=== PATIENT | female | born 2005 | race Caucasian/White ===

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

== ENCOUNTER 2024-03-20 09:40 | Observation (INO) ==
[2024-03-20 10:36] LABS: Basophils # (auto) 0.05 K/uL (0.00-0.20); Basophils % (auto) 0.6 %; Eosinophils # (auto) 0.11 K/uL (0.00-0.50); Eosinophils % (auto) 1.3 %; Hematocrit (blood only) 34.5 % (37.0-47.0); Hemoglobin 10.9 g/dl (12.0-16.0); Immature Granulocytes # (auto) 0.04 K/uL (0.01-0.20); Immature Granulocytes % (auto) 0.5 %; Lymphocytes # (auto) 1.56 K/uL (1.20-3.40); Lymphocytes % (auto) 18.1 %; Mean Corpuscular Hemoglobin 24.4 pg (25.0-34.0); Mean Corpuscular Hgb Conc 31.6 g/dL (32.0-36.0); Mean Corpuscular Volume 77.2 fL (80.0-100.0); Mean Platelet Volume 9.9 fL (9.4-12.4); Monocytes # (auto) 0.62 K/uL (0.11-0.59); Monocytes % (auto) 7.2 %; Neutrophils # (auto) 6.25 K/uL (1.40-6.50); Neutrophils % (auto) 72.3 %; Platelet Count 271 K/uL (130-400); RDW Coefficient of Variation 15.9 % (11.5-14.5); RDW Standard Deviation 44.6 fL (36.4-46.3); Red Blood Count 4.47 M/uL (4.20-5.40); White Blood Count 8.63 K/ul (4.8-10.8)
[2024-03-20 10:50] LABS: Albumin Globulin Ratio 1.4 (0.9-2); Albumin Level 4.2 gm/dl (3.4-5.0); Bilirubin,Total 0.5 mg/dl (0.2-1.0); Calcium 9.3 mg/dl (8.6-10.3); Creatinine Clr Calc Pharmacy 131.7 ml/min; Est GFR (African American) 128.8 ml/min; Est GFR (Non-African American) 111.1 ml/min; Globulin 2.9 gm/dl (2.5-4.0); Potassium 3.4 mmol/L (3.5-5.1); Total Protein 7.1 gm/dl (6.0-8.3)
--- NOTE | 2024-03-20 11:17 | Emergency Department Note ---
History of Present Illness General Chief complaint: Overdose (Accidental) Stated complaint: OVERDOSE Time Seen by Provider: 03/20/24 11:04 History of Present Illness This is a 19-year-old patient presents to the emergency department via private vehicle with complaints of "overdose". Patient notes last evening around 11 PM she reached to take her Lamictal. They only takes 3 tablets of the lamictal but did not turn the lights on and accidentally took 3 tablets of Wellbutrin instead. They note this was 300 mg tablets therefore took 900 mg of Wellbutrin. They felt fine and went to sleep. Upon awakening today they note dizzy, lightheaded, has some shakiness and feeling as though the heart rate is different. They denies any fevers, chills, nausea or vomiting. No chest pain or shortness of breath. No abdominal pain. Patient denies that this was any attempt to harm herself. No SI or HI at the present time. Patient notes a history of suicide attempt at age 15 with overdose of medication. They states they have been overal doing well from a physical and mental standpoint. They notes her mood is much better. They did not take the Wellbutrin this morning that was scheduled noting, they took last night. Patient does request a nicotine patch at this time noting that they do smoke about 1 pack/day. Home Medications Medication Instructions Recorded Confirmed Type clonazepam 1 mg tablet 2 mg PO DAILY PRN Anxiety 10/30/23 03/20/24 History bupropion HCl 300 mg 24 hr tablet, 300 mg PO QAM 03/20/24 03/20/24 History extended release cholecalciferol (vitamin D3) 50 2,000 unit PO QAM 03/20/24 03/20/24 History mcg (2,000 unit) capsule (Vitamin D3) hydroxyzine HCl 50 mg tablet See Rx Instructions .Route .COMPLEX 03/20/24 03/20/24 History lamotrigine 100 mg tablet 300 mg PO QPM 03/20/24 03/20/24 History Allergies Allergy/AdvReac Type Severity Reaction Status Date / Time mirtazapine [From Remeron] Allergy Intermediate TONGUE Verified 03/20/24 11:47 SWELLED Past Med/Surg History Problem List (Updated 03/20/24 @ 20:07 by Cam Barahona PA-C) Marijuana use Tobacco use Accidental overdose (Acute) Laceration of left leg (Acute) Prolonged QT interval (Acute) Leukocytosis (Acute) Altered mental status (Acute) Tachycardia (Acute) Drug overdose, multiple drugs (Acute) Lab test negative for COVID-19 virus (Acute) Self-harm Borderline personality disorder Post traumatic stress disorder (PTSD) Generalized anxiety disorder with panic attacks Bipolar disorder Medical History Post traumatic stress disorder (PTSD) Depression with suicidal ideation Attention deficit disorder (ADD) Anxiety Depression Surgical History No pertinent past surgical history Social History Smoking Status: Current every day smoker Tobacco Type: Cigarettes Second Hand Exposure: No; Do You Dip or Chew Tobacco: No; Tobacco Cessation Education Requested by Patient: No Hx Alcohol Use: Yes Alcohol type: hard liquor Hx Substance Use: Yes Last Used Substance: Hours (ago) Preferred Language: Romansh Communication Ability: Effective Belt Picker Required: No Beliefs That Will Affect Care: None Current Living Situation: Significant Other Current Living Situation Comment: Lico Ervin Other Information That Helps Us Care for You: No Feels Safe at Home: Yes Safety Concerns: Feels Safe At This Time Gender Identity: Nonbinary Assistive Devices: None Review of Systems A total of 10 systems reviewed and were otherwise negative Physical Exam Vital Signs Vital Signs - 24 hr 03/20/24 09:40 03/20/24 09:53 03/20/24 11:02 Temperature 36.7 C Temperature Source Oral Pulse Rate 82 75 Pulse Rate [Right Finger] Respiratory Rate 18 Respiratory Effort / Characteristics Non-Labored Respiratory Depth Normal Respiratory Pattern Regular Blood Pressure 119/69 Blood Pressure [Right Arm] Blood Pressure Mean 85 Blood Pressure Mean [Right Arm] Pulse Oximetry 97 Oxygen Delivery Method Room Air Room Air Sepsis Recent Fever Within 48 Hours No Sepsis New/Unexplained Change in Mental Status N/A Sepsis Action Taken by Nursing No Action Required 03/20/24 11:33 Temperature Temperature Source Pulse Rate Pulse Rate [Right Finger] 82 Respiratory Rate 24 Respiratory Effort / Characteristics Non-Labored Spontaneous Respiratory Depth Normal Respiratory Pattern Blood Pressure Blood Pressure [Right Arm] 123/73 Blood Pressure Mean Blood Pressure Mean [Right Arm] 89 Pulse Oximetry 98 Oxygen Delivery Method Room Air Sepsis Recent Fever Within 48 Hours Sepsis New/Unexplained Change in Mental Status Sepsis Action Taken by Nursing VITAL SIGNS - Vital signs and nursing notes were reviewed.Stable and afebrile. GENERAL -19-year-old patient appearing their stated age who is in no acute distress. Communicates well with provider and answers questions appropriately. SKIN - Without rashes. HEAD - NC/AT. EYES - PERRL with EOMI bilaterally. Sclera anicteric. Palpebral conjunctiva pink and moist with no injection noted. EARS - No deformities of external structures noted on gross examination bilaterally.External auditory canals without discharge or otorrhea. Tympanic membranes pearly [place] without retraction or bulging. No fluid or purulent material visualized behind the TM. Handle of malleus, umbo, cone of light, pars tensa/flaccid all easily visualized. NOSE - Midline and without cyanosis. No epistaxis or purulent drainage noted. Septum midline without deviation or septal hematoma noted. MOUTH/OROPHARYNX - Without perioral cyanosis. Buccal mucosa pink and moist and without leukoplakia. Tongue midline with equal elevation of palate bilaterally. No tonsillar hypertrophy, erythema, or exudates noted. dentition noted. NECK - Neck with FROM. No nuchal rigidity. LUNGS -CTA CARDIAC - RRR EXTREMITIES - No clubbing or peripheral cyanosis.+5/5 strength noted in UE/LE bilaterally. NEUROLOGIC - Cranial nerves II through XII grossly intact. PSYCH - A&Ox3 and cooperates fully with examiner. Pt is very pleasant and interacts well with examiner. Course Administered Medications Discontinued Medications Nicotine (Nicotine 14 Mg/24 Hr Patch) 1 patch TD NOW STA Stop: 03/20/24 11:23 Last Admin: 03/20/24 11:41 Dose: Not Given Documented By: NRSultana Nicotine (Nicotine 21 Mg/24 Hr Tdsy) Confirm Administered Dose 1 patch TD .STK- MED ONE Stop: 03/20/24 11:31 Last Admin: 03/20/24 11:41 Dose: 1 patch Documented By: DOROTHEA Potassium Chloride (Potassium Chloride Crtab 20 Meq Tabcr) 20 meq PO NOW STA Stop: 03/20/24 17:20 Last Admin: 03/20/24 17:26 Dose: 20 meq Documented By: JAX Medical Decision Making Laboratory Data 03/20/24 09:55 03/20/24 09:55 Lab Results 03/20/24 03/20/24 03/20/24 Range/Units 09:55 10:57 11:01 WBC 8.63 (4.8-10.8) K/ul RBC 4.47 (4.20-5.40) M/uL Hgb 10.9 L (12.0-16.0) g/dl Hct 34.5 L (37.0-47.0) % MCV 77.2 L (80.0-100.0) fL MCH 24.4 L (25.0-34.0) pg MCHC 31.6 L (32.0-36.0) g/dL RDW Std Deviation 44.6 (36.4-46.3) fL RDW Coeff of Wood 15.9 H (11.5-14.5) % Plt Count 271 (130-400) K/uL MPV 9.9 (9.4-12.4) fL Immature Gran % (Auto) 0.5 % Neut % (Auto) 72.3 % Lymph % (Auto) 18.1 % [place] % (Auto) 7.2 % Eos % (Auto) 1.3 % Baso % (Auto) 0.6 % Neut # (Auto) 6.25 (1.40-6.50) K/uL Lymph # (Auto) 1.56 (1.20-3.40) K/uL [place] # (Auto) 0.62 H (0.11-0.59) K/uL Eos # (Auto) 0.11 (0.00-0.50) K/uL Baso # (Auto) 0.05 (0.00-0.20) K/uL Immature Gran # (Auto) 0.04 (0.01-0.20) K/uL PT (9.0-12.0) Seconds INR (0.9-1.1) APTT (21-31) Seconds PTT Ratio Sodium 138 (136-145) mmol/L Potassium 3.4 L (3.5-5.1) mmol/L Chloride 106 (98-107) mmol/L Carbon Dioxide 23 (21-32) mmol/L Anion Gap 9 (3-11) BUN 10 (6-23) mg/dl Creatinine 0.77 (0.6-1.2) mg/dl Est Cr Clr Drug Dosing 131.7 ml/min Est GFR ( Amer) 128.8 ml/min Est GFR (Non-Af Amer) 111.1 ml/min BUN/Creatinine Ratio 13.0 (10-20) Glucose 82 (70-99(Fasting)) mg/dl Calcium 9.3 (8.6-10.3) mg/dl Total Bilirubin 0.5 (0.2-1.0) mg/dl AST 13 (13-39) U/L ALT 10 (7-52) U/L Alkaline Phosphatase 77 (34-104) U/L Total Protein 7.1 (6.0-8.3) gm/dl Albumin 4.2 (3.4-5.0) gm/dl Globulin 2.9 (2.5-4.0) gm/dl Albumin/Globulin Ratio 1.4 (0.9-2) TSH 1.195 (0.300-4.500) uIu/ml Urine Color Yellow Urine Appearance Clear (Clear) Urine pH 5.5 (4.5-7.5) Ur Specific [place] 1.009 (1.000-1.030) Urine Protein Negative (Negative) Urine Glucose (UA) Negative (Negative) Urine Ketones 1+ H (Negative) Urine Blood Negative (Negative) Urine Nitrite Negative (Negative) Urine Bilirubin Negative (Negative) Urine Urobilinogen Negative (Negative) Ur Leukocyte Esterase Trace H (Negative) Urine WBC (Auto) 0-5 (0-5) /hpf Urine RBC (Auto) 0-2 (0-2) /hpf U Hyaline Cast (Auto) 0-2 (0-2) /lpf U Epithel Cells (Auto) 3-5 H (0-2) /hpf Urine Bacteria (Auto) None Seen (None Seen) POC Ur Test NEG (NEG) Salicylates < 3.0 L (3.0-30) mg/dl Acetaminophen < 3 L (10-30) ug/ml 03/20/24 Range/Units 11:13 WBC (4.8-10.8) K/ul RBC (4.20-5.40) M/uL Hgb (12.0-16.0) g/dl Hct (37.0-47.0) % MCV (80.0-100.0) fL MCH (25.0-34.0) pg MCHC (32.0-36.0) g/dL RDW Std Deviation (36.4-46.3) fL RDW Coeff of [place] (11.5-14.5) % Plt Count (130-400) K/uL MPV (9.4-12.4) fL Immature Gran % (Auto) % Neut % (Auto) % Lymph % (Auto) % [place] % (Auto) % Eos % (Auto) % Baso % (Auto) % Neut # (Auto) (1.40-6.50) K/uL Lymph # (Auto) (1.20-3.40) K/uL [place] # (Auto) (0.11-0.59) K/uL Eos # (Auto) (0.00-0.50) K/uL Baso # (Auto) (0.00-0.20) K/uL Immature Gran # (Auto) (0.01-0.20) K/uL PT 11.4 (9.0-12.0) Seconds INR 1.1 (0.9-1.1) APTT 25 (21-31) Seconds PTT Ratio 0.9 Sodium (136-145) mmol/L Potassium (3.5-5.1) mmol/L Chloride (98-107) mmol/L Carbon Dioxide (21-32) mmol/L Anion Gap (3-11) BUN (6-23) mg/dl Creatinine (0.6-1.2) mg/dl Est Cr Clr Drug Dosing ml/min Est GFR ( Amer) ml/min Est GFR (Non-Af Amer) ml/min BUN/Creatinine Ratio (10-20) Glucose (70-99(Fasting)) mg/dl Calcium (8.6-10.3) mg/dl Total Bilirubin (0.2-1.0) mg/dl AST (13-39) U/L ALT (7-52) U/L Alkaline Phosphatase (34-104) U/L Total Protein (6.0-8.3) gm/dl Albumin (3.4-5.0) gm/dl Globulin (2.5-4.0) gm/dl Albumin/Globulin Ratio (0.9-2) TSH (0.300-4.500) uIu/ml Urine Color Urine Appearance (Clear) Urine pH (4.5-7.5) Ur Specific [place] (1.000-1.030) Urine Protein (Negative) Urine Glucose (UA) (Negative) Urine Ketones (Negative) Urine Blood (Negative) Urine Nitrite (Negative) Urine Bilirubin (Negative) Urine Urobilinogen (Negative) Ur Leukocyte Esterase (Negative) Urine WBC (Auto) (0-5) /hpf Urine RBC (Auto) (0-2) /hpf U Hyaline Cast (Auto) (0-2) /lpf U Epithel Cells (Auto) (0-2) /hpf Urine Bacteria (Auto) (None Seen) POC Ur Test (NEG) Salicylates (3.0-30) mg/dl Acetaminophen (10-30) ug/ml MDM Narrative Patient was seen and evaluated as above in room A02. Review was performed of triage nursing notes and vital signs. I did review pertinent previous visits and patient history. After obtaining a thorough history and physical examination the above work up was performed. Patient presents to us today for evaluation of ingestion of Wellbutrin the patient notes is accidental. Patient denies that this was an attempt to harm themself. EKG reveals normal sinus rhythm at a rate of 77 bpm. QTc 466. QRS 92. No ST elevation. Options of care were discussed with the patient. IV access was established. Labs were drawn. No leukocytosis. Minor anemia noted with hemoglobin at 10.9. Mild hypokalemia 3.4. No evidence of kidney or liver failure. UA negative for infection. UPT is negative. Coags pending at this time as well as salicylate and acetaminophen level. 11:17 AM-I spoke to Poison Control Center. Recommendation is to observe the patient for 24 hours postingestion noting elevated risk of seizure secondary to the amount of Wellbutrin that was ingested. Seizure precautions initiated. Patient did inquire about an nicotine patch therefore was ordered. Will proceed with admission at this time. Case discussed with the hospitalist service. Please refer to further documentation regarding her stay GCS: 15 In the evaluation and treatment of this patient the following differential diagnoses were entertained: Accidental ingestion, intentional ingestion, mixed drug ingestion, among others Impression & Plan Accidental overdose Discharge Plan Visit Data Chief Complaint: Overdose (Accidental) Stated Complaint: OVERDOSE ED Provider: Yonny Gabriel ED Midlevel Provider: Cam Barahona Discharge Problem: Accidental overdose Patient Disposition: Admitted As Inpatient Condition: Good Discharge Instructions Interventions: ED Discharge Assessment Last Done: 03/20/24 12:27
[2024-03-20 11:24] LABS: Appearance Urine Clear (Clear); Bacteria Urine Automated None Seen (None Seen); Bilirubin Urine Negative (Negative); Blood Urine Negative (Negative); Cast Urine Automated 0-2 /lpf (0-2); Color Urine Yellow; Glucose Urine UA Negative (Negative); Ketones Urine 1+ (Negative); Leukocyte Esterase Urine Trace (Negative); Nitrite Urine Negative (Negative); Protein Urine Negative (Negative); RBC Urine Automated 0-2 /hpf (0-2); Specific Gravity Urine 1.009 (1.000-1.030); Urobilinogen Urine Negative (Negative); WBC Urine Automated 0-5 /hpf (0-5); pH Urine 5.5 (4.5-7.5)
[2024-03-20 11:37] LABS: Acetaminophen < 3 ug/ml (10-30); Salicylate < 3.0 mg/dl (3.0-30)
[2024-03-20] MEDS: NICOTINE 14 MG/24 HR PATCH TD STA (11:41)
[2024-03-20] MEDS: NICOTINE 21 MG/24 HR TDSY TD ONE (11:41)
--- NOTE | 2024-03-20 11:52 | History & Physical Report ---
<Statement entered by Volodymyr Esteves DO - 03/20/24 17:21> I have seen and examined the patient and have discussed the case with the provider above. I have reviewed the advanced practitioner's documentation, and I agree with, and take responsibility for that plan of care. 10 minutes additional care Patient seen while still in the ED with LILIAN. Plan of care and orders reviewed with LILIAN and as outlined below Date of Service March 20, 2024 Assessment & Plan (1) Accidental overdose: (2) Bipolar disorder: (3) Generalized anxiety disorder with panic attacks: (4) Post traumatic stress disorder (PTSD): (5) Tobacco use: (6) Marijuana use: (7) Borderline personality disorder: Plan: - Admit to med surg for observation - Poison control contacted and recommended 24 hrs observation due to increased risk for seizure with ingestion of Wellbutrin ER 900 mg total since it is over 600 mg threshold. - EKG reviewed without acute changes, noted prolonged QTC - Follows with outpt psych with [facility] -- pt has follow up with them tomorrow 03/21 at 1:30pm. Would advise discharge if at all possible for her in the morning to make this appointment. No need for inpt psych eval. - Hx of intentional overdose, at this time seems like this was truely accidental. 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 - Pt education on ER dosing and not being able to cut the pills in half was held at bedside - will need to reinforce medication instructions/dosing prior to dc - Discussion held regarding smoking cessation at bedside - encouraged slow taper off 3# cigs weekly, enforced wellbutrin should help with cravings, also habit of drawing to help her relax. Pt uses marijuana and has medical card. - Drug tox screen ordered for completeness DVT ppx: teds, scds, ambulatory Lines: 1 PIV FEN/GI: Regular diet CODE: Full code Dispo: From home, likely to remain in the hospital x 1-2 days A total of 75 minutes were spent with greater than 50% of that time face to face with the patient, personally reviewing all current laboratories, imaging studies, past medication reconciliation, outpatient chart review, and discussion with specialists to collaborate care for the patient with attending. Please see attending documentation for corrections and/or additions. History of Present Illness Chief Complaint: Accidental ingestion of Wellbutrin ER 900 mg total at 11pm last night Primary Care Provider: Yanna Borja, This is a 19-year-old biological female who goes by Castro (them/their/they), with PMHx of generalized anxiety with panic attack, bipolar disorder, borderline personality disorder, history of suicidal attempt at age 17 and chronic tobacco and marijuana use. Pt presents today with complaint of accidentally ingesting Wellbutrin 900 mg extended release last night around 11 PM. Pt states typically takes Lamictal 3 tablets in the evening (total 300 mg), and due to grabbing of the bottle in the dark, did not see what had actually been picked up. Patient complains of increased shakiness this morning as well as heart palpitations or feeling like it missed a beat. Castro presented to the ER and poison control was contacted. Poison control is recommending observation of the patient for 24 hours due to the increased seizure risk 24 hours after ingestion of more than 600 mg Wellbutrin. Pt admits to smoking 1 ppd cigarrettes as well as smokes marijuana daily. She last smoked marijuana a few days ago. Pt also notes that she had been cutting her Wellbutrin tablets in half because she ran out of the normal 150 mg ER tablets. We had a long discussion about not cutting them in half, and proper disposal of medication such as returning the medications to a pharmacy. Pt denies potential for . States she doesn't know when her last menses was but that it has been irregular all her life. Pt is sexually active with women, denies control use, discussion was held regarding barrier protection for STIs. Pt expressed understanding. Allergies Allergy/AdvReac Type Severity Reaction Status Date / Time mirtazapine [From Remeron] Allergy Intermediate TONGUE Verified 03/20/24 11:47 SWELLED Home Medications Medication Instructions Recorded Confirmed Type bupropion HCl 150 mg tablet,12 hr 150 mg PO DAILY 10/30/23 03/20/24 History sustained-release clonazepam 1 mg tablet 1 mg PO BID PRN Anxiety 10/30/23 03/20/24 History cholecalciferol (vitamin D3) 50 2,000 unit PO QAM 03/20/24 03/20/24 History mcg (2,000 unit) capsule (Vitamin D3) hydroxyzine HCl 50 mg tablet See Rx Instructions .Route .COMPLEX 03/20/24 03/20/24 History lamotrigine 100 mg tablet See Rx Instructions .Route .COMPLEX 03/20/24 03/20/24 History Past Med/Surg History Problem List (Updated 03/20/24 @ 11:44 by Meagan Amador PA-C) Marijuana use Tobacco use Accidental overdose Laceration of left leg (Acute) Prolonged QT interval (Acute) Leukocytosis (Acute) Altered mental status (Acute) Tachycardia (Acute) Drug overdose, multiple drugs (Acute) Lab test negative for COVID-19 virus (Acute) Self-harm Borderline personality disorder Post traumatic stress disorder (PTSD) Generalized anxiety disorder with panic attacks Bipolar disorder Medical History Post traumatic stress disorder (PTSD) Depression with suicidal ideation Attention deficit disorder (ADD) Anxiety Depression Surgical History No pertinent past surgical history Social History Smoking Status: Current every day smoker Tobacco Type: Cigarettes Second Hand Exposure: No; Do You Dip or Chew Tobacco: No; Hx Alcohol Use: Yes Alcohol type: hard liquor Hx Substance Use: Yes Last Used Substance: Hours (ago) Preferred Language: Mauritanian Communication Ability: Effective Hand Packager Required: No Beliefs That Will Affect Care: None Current Living Situation: Significant Other Current Living Situation Comment: Lico Ervin Feels Safe at Home: Yes Gender Identity: Nonbinary Assistive Devices: None Review of Systems Review of Systems: Constitutional: No fever, sweats or chills, + shakiness as per HPI Eyes: No diplopia, no worsening or blurred vision ENT: normal hearing, no trouble swallowing Respiratory: No cough, sputum, dyspnea at rest or on exertion Cardiovascular: No chest pain, tightness or heaviness, + occasional flutter/palpitation per HPI Abdomen: No pain, nausea, vomiting, diarrhea or constipation Musculoskeletal: No joint pain, calf pain, swelling Neurologic: No weakness, numbness/tingling, or balance problems Psychiatric: Hx of anxiety , mood disorder, no suicidal ideations or homicidal ideations Skin: No rash or itch Physical Exam Physical Exam: General: awake, alert, no apparent distress, white female Head: Normocephalic, atraumatic ENT: PERRL, EOMI, no pharyngeal exudate, mucous membranes moist Chest: Clear to auscultation, on room air, no adventitious breath sounds Cardiac: Regular rate and rhythm, no murmur, no JVD, normal peripheral pulses, good capillary refill Abdominal: NABS x 4 quadrants, soft, nondistended, nontender to palpation, no rebound or guarding Extremities: Normal inspection, no peripheral edema or erythema, calfs nontender to palpation Psych: Normal mood and affect, no suicidal ideations or homicidal ideations Neuro: AAO x 3, strength intact bilaterally and rated 5/5, no motor deficits, speech is clear, no peripheral sensory deficits Results & Data Results & Data Vital Signs (Past 12 Hours) Vital Signs Temp Pulse Pulse Resp BP BP Pulse Ox 03/20/24 11:33 82 24 123/73 98 03/20/24 11:02 03/20/24 09:53 75 03/20/24 09:40 36.7 C 82 18 119/69 97 O2 Del Method 03/20/24 11:33 Room Air 03/20/24 11:02 Room Air 03/20/24 09:53 03/20/24 09:40 Room Air Laboratory Results 03/20/24 03/20/24 03/20/24 11:01 10:57 09:55 WBC 8.63 RBC 4.47 Hgb 10.9 L Hct 34.5 L MCV 77.2 L MCH 24.4 L MCHC 31.6 L RDW Std Deviation 44.6 RDW Coeff of Wood 15.9 H Plt Count 271 MPV 9.9 Immature Gran % (Auto) 0.5 Neut % (Auto) 72.3 Lymph % (Auto) 18.1 [place] % (Auto) 7.2 Eos % (Auto) 1.3 Baso % (Auto) 0.6 Neut # (Auto) 6.25 Lymph # (Auto) 1.56 [place] # (Auto) 0.62 H Eos # (Auto) 0.11 Baso # (Auto) 0.05 Immature Gran # (Auto) 0.04 Sodium 138 Potassium 3.4 L Chloride 106 Carbon Dioxide 23 Anion Gap 9 BUN 10 Creatinine 0.77 Est Cr Clr Drug Dosing 131.7 Est GFR ( Amer) 128.8 Est GFR (Non-Af Amer) 111.1 BUN/Creatinine Ratio 13.0 Glucose 82 Calcium 9.3 Total Bilirubin 0.5 AST 13 ALT 10 Alkaline Phosphatase 77 Total Protein 7.1 Albumin 4.2 Globulin 2.9 Albumin/Globulin Ratio 1.4 Urine Color Yellow Urine Appearance Clear Urine pH 5.5 Ur Specific [place] 1.009 Urine Protein Negative Urine Glucose (UA) Negative Urine Ketones 1+ H Urine Blood Negative Urine Nitrite Negative Urine Bilirubin Negative Urine Urobilinogen Negative Ur Leukocyte Esterase Trace H Urine WBC (Auto) 0-5 Urine RBC (Auto) 0-2 U Hyaline Cast (Auto) 0-2 U Epithel Cells (Auto) 3-5 H Urine Bacteria (Auto) None Seen POC Ur Test NEG Salicylates < 3.0 L Acetaminophen < 3 L Code Status & VTE Plan Code Status Full code
[2024-03-20 12:07] LABS: INR 1.1 (0.9-1.1); Partial Thromboplastin Ratio 0.9; Partial Thromboplastin Time 25 Seconds (21-31); Prothrombin Time 11.4 Seconds (9.0-12.0)
[2024-03-20 12:29] LABS: Amphetamines+Metham, Urine Pos (Neg); Barbiturates, Urine Neg (Neg); Benzodiazepine, Urine Neg (Neg); Cocaine, Urine Neg (Neg); MDMA (Ecstacy), Urine Pos (Neg); Marijuana, Urine Pos (Neg); Methadone, Urine Neg (Neg); Opiate, Urine Neg (Neg); Phencyclidine, Urine Neg (Neg)
[2024-03-20 12:30] LABS: Thyroid Stimulating Hormone 1.195 uIu/ml (0.300-4.500)
[2024-03-20] MEDS ORDERED: ACETAMINOPHEN 325 MG TAB PO PRN (12:33)
--- NOTE | 2024-03-20 16:13 | Electrocardiogram Report ---
Test Reason : Blood Pressure : / mmHG Vent. Rate : 077 BPM Atrial Rate : 077 BPM P-R Int : 176 ms QRS Dur : 092 ms QT Int : 412 ms P-R-T Axes : 045 044 035 degrees QTc Int : 466 ms Normal sinus rhythm Early repolarization Otherwise Normal ECG When compared with ECG of 31-OCT-2023 06:03, No significant change was found Confirmed by Ananda Addison ([id number]) on 03/20/2024 4:12:51 PM Referred By: REFERRED SELF Confirmed By:Ananda Addison
[2024-03-20] MEDS: POTASSIUM CHLORIDE CRTAB 20 MEQ TABCR PO STA (17:26)
--- OUTSIDE RECORDS SUMMARY | 2024-03-20 20:39 | External Medical Summary | Summary of Care ---
Author Name Unknown Organization [facility] Address [address] [place] [address] Phone [phone] Care Team Providers Care Sound Equipment Mechanic Name Role Phone Yanna Borja DO Primary Care Provider [phone] Reason for Visit * Reason Comments Acute Patient is here toda y due to concerns about epilepsy. Patient states she had a seizure two days ago. Patient states she had the first one when she was 15 due to OD on pills, and second one when she smoked laced marijuana. Patient states when she is about to have a panic attack she freezes and stares off and is not responsive to others. Patient states the one two days ago she took her prescribed medication and still had a panic attack which led into a seizure that lasted 10 minutes. etc Encounter Details Date Type Department Care Team (Late st Contact Info) Description 02/06/2024 1:20 PM EDT [facility] [address] [place] [address] February, Colin Chappell MD [address] [place] [address] Seizure-like activity (HCC)*; Bipolar disorder, current episode depressed, severe, without psychotic features (HCC); Borderline personality disorder (HCC) Allergies Active Allergy Reactions Criticality Noted Date Comments Mirtazapine 06/11/2021 Swelling per psych records from [facility] 04/2021 documented as of this encounter (statuses as of 02/06/2024) Medications Medication Sig Dispensed Refills Start Date End Date Status buPROPion HCl ER (XL) 300 MG Oral Tablet Extended Release 24 Hour (Wellbutrin XL) Take 1 Tablet by mouth in the morning. 30 Tablet 5 11/10/2023 Active lamoTRIgine 25 MG Oral Tablet Chewable (lamoTRIgine) Take 25 mg by mouth in the morning and 25 mg in the evening. 30 Tablet 1 11/10/2023 Active clonazePAM 2 MG Oral Tablet (KlonoPIN) Take 1 Tablet by mouth daily as needed for Anxiety. 4 Tablet 0 11/10/2023 Active hydrOXYzine HCl 50 MG Oral Tablet TAKE 1-2 TABLETS BY MOUTH AT BEDTIME NEEDED 0 11/24/2023 Active Vitamin D3 50 MCG (2000 UT) Oral Capsule Take 1 Capsule by mouth in the morning. 90 Capsule 3 12/12/2023 Active metFORMIN HCl 500 MG Oral Tablet (Glucophage) Take 1 Tablet by mouth 2 times a day with morning and evening meals. 180 Tablet 0 01/08/2024 Active documented as of this encounter (statuses as of 02/06/2024) Active Problems Problem Noted Date Diagnosed Date Prediabetes 12/12/2023 Hyperinsulinemia 12/12/2023 Bipolar 2 disorder, major depressive episode 08/2024 Borderline personality disorder 11/10/2023 Eating disorder 01/30/2022 Bipolar disorder 01/30/2022 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 Foreign body alimentary tract 01/30/2022 Palpitations 12/02/2015 Chronic rhinitis 12/16/2010 documented as of this encounter (statuses as of 02/06/2024) Resolved Problems Problem Noted Date Diagnosed Date Resolved Date Fracture of phalanx of left index finger 05/29/2014 06/11/2021 Overview: distal Finger injury 05/29/2014 06/11/2021 Overview: left 2nd Open wound of finger 05/29/2014 024 Subungual hematoma of finger of left hand 05/29/2014 06/11/2021 Overview: 2nd Dysfunction of eustachian tube 12/16/2010 06/11/2021 OTITIS MEDIA,RECURRENT 12/16/201006/11 RECURRENT ACUTE SINUSITIS 12/16/2010 RECURRENT ACUTE PHARYNGITIS 12/16/2010 06/11/2021 documented as of this encounter (statuses as of 02/06/2024) Immunizations Name Administration Dates Next Due DTaP [...] Date Recorded PHQ Adult Total Score 20 11/29/2023 Hunger Vital Sign Answer Date Recorded Within the past 12 months, y ou worried that your food would run out before you got the money to buy more. Patient declined Within the past 12 months, t he food you bought just didn't last and you didn't have money to get more. Patient declined Sex and Gender Information Value Date Recorded Sex Assigned at Female 05/12/2023 1:03 PM EDT Gender Identity Non Binary 05/12/2023 1:03 PM EDT Sexual Orientation Bisexual 01/21/2024 10 :56 AM EDT Job Start Date Occupation Industry Not on file Not on file Not on file documented as of this encounter Last Filed Vital Signs Vital Sign Reading Time Taken Comments Blood Pressure 116/84 02/06/2024 1:12 PM EDT Pulse 108 02/06/2024 1:12 PM EDT Temperature 36.9 C (98.4 F) 02/06/2024 1:12 PM ED T Respiratory Rate 16 02/06/2024 1:12 PM EDT Oxygen Saturation 99% 02/06/2024 1:12 PM EDT Inhaled Oxygen Concentration - - Weight 89 kg (196 lb 4.8 oz) 02/06/2024 1:12 PM EDT Height - - Body Mass Index - - documented in this encounter Progress Notes * Colin Lopez MD - 02/06/2024 1:15 PM EDT Images from the original note were not included. Assessment and Plan Patient presents due to seizure-like activity. I suspect that this is related to panic rather than a seizure as the patient can recall the events of 2 days ago, has no clear postictal period, and hadno urinary incontinence or tongue biting. We did discuss getting an EEG to rule out any concern forepilepsy. She will continue her medications unchanged. We did discuss importance of not stocking doses of Klonopin as she did around the events 2 days ago due to risk of respiratory depression and overdose. She does not drive. If concerns for epilepsy on EEG recommend Neurology evaluation. Otherwise continue to follow up with Psychiatry for ongoing care. 1. Seizure-like activity (HCC) - EEG ROUTINE 2. Bipolar disorder, current episode depressed, severe, without psychotic features (HCC) 3. Borderline personality disorder (HCC) Wrap-Up Follow up as needed. History of Present Illness The patient is a 19 year old person who presents for follow up. Patient presents due to concerns of seizure. Delmer has a history of seizure at age 15 when overdosed on pills. Had a second seizure when using marijuana. Has staring into the distance when highly stressed that delmer considers a seizure. Two days ago had a panic attack that led to a "seizure". Was feeling very overwhelmed and stressed due to traumatic memories coming up. This let to panic attack. Remembers falling off of the bed and thrashing around. Banged right side of face on the floor. Remembers fiance speaking. Following the episode was off balance and had a fall. No urinary incontinence. No tongue biting. Lasted 10 minutes.Took klonopin 2 mg of klonopin before the panic attack then took 4 mg of klonopin following the episode. Patient does not drive. Follows with [facility] for psychiatric care. Physical Exam Vitals: 02/06/24 1312 Temp: 36.9 C (98.4 F) Pulse: 108 Resp: 16 SpO2: 99% BP: 116/84 Physical Exam Physical Exam Vitals reviewed. Constitutional: General: Delmer Santos is not in acute distress. Pulmonary: Effort: Pulmonary effort is normal. No respiratory distress. Neurological: General: No focal deficit present. Mental Status: Delmer Santos is alert. Cranial Nerves: No cranial nerve deficit. Motor: No weakness. Gait: Gait normal. Psychiatric: Mood and Affect: Mood normal. Behavior: Behavior normal. This note has been completed in part utilizing [employer] Speech Voice Recognition Software. Due to technical limitations of the software, grammatical errors, random word insertions, prounoun errors, and incomplete sentences may occur. Any formal questions or concerns about the content, text, or information contained within the body of this dictation should be directly addressed to the provider for clarification. documented in this encounter Nursing Notes * Ev Coronado LPN - 02/06/2024 1:11 PM EDT The patient has been properly identified by confirmation of name and date of . Chief Complaint Patient presents with Acute Patient is here today due to concerns about epilepsy. Patient states she had a seizure two days ago. Patient states she had the first one when she was 15 due to OD on pills, and second one when she smoked laced marijuana. Patient states when she is about to have a panic attack she freezes and stares off and is not responsive to others. Patient states the one two days ago she took her prescribed medication and still had a panic attackwhich led into a seizure that lasted 10 minutes. etc Patient states after taking the one clonidine she took 2 more and then got herself calmed down. Patient states she was advised to never take that amount again by her psychiatrist. documented in this encounter Plan of Treatment Upcoming Encounters Date Type Department Care Team (Late st Contact Info) Description 02/21/2024 10:30 AM EDT NeuroDiagnostic Study Neurophysiology [facility] [address] [facility] [place] [address] Sp, Neurophys Tech [address] [facility] [address] 11/30/2024 8:00 AM EST [facility] [address] [facility] [place] [phone] Nelly Graf PA-C [address] [place], [place] [phone] Scheduled Orders Name Type Priority Associated Diagnoses Orde r Schedule EEG ROUTINE Procedures Routine Seizure-like activity (HCC) Ordered: 02/06/2024 Health Maintenance Due Date Last Done Comments Pneumococcal Vaccine: Pediatrics (0 to 5 Years) and At-Risk Patients (6 to 64 Years) (1 of 1 - PPSV23 or PCV20) 01/30/2010 05/06/2005, 2004, 2004, Additional history exists GARDASIL-HPV IMMUNIZATION SERIES (2 - 2-dose series) 04/22/2016 10/22/2015 Gonorrhea / Chlamydia Screen 01/30/2019 HIV Screening 01/30/2019 Hepatitis C Screening 01/30/2022 COVID-19 Vaccine ( - season) 2023 Depression, Most Recent Score >= 10 (will fire each visit until score < 10) 02/07/2024 02/06/2024 DTaP,Tdap,and Td Vaccines (7 - Td or Tdap) 05/29/2024 05/29/2014, 04/15/2009, 05/06/2005, Additional history exists Influenza Vaccine (FLU shot) (Season Ended) 2024 09/25/2022, 10/19/2021, 10/19/2021, Additional history exists HbA1c 11/29/2024 11/29/2023, 07/28/2021 Yearly Wellness Visit 11/29/2024 11/29/2023 , 11/26/2022, 10/22/2015 Hepatitis B Completed 2004, 12/2003, 2004, Additional history exists MENINGOCOCCAL (MENACTRA/MENVEO) Aged Out 10/22/2015 No longer eligible based on patient's age to complete this topic documented as of this encounter Medical Devices Not on filedocumented as of this encounter Visit Diagnoses Diagnosis Seizure-like activity (HCC)- Primary Other convulsions Bipolar disorder, current episode depressed, severe, without psychotic features (HCC) Bipolar I disorder, most recent episode (or current) depressed, severe, without mention of psychotic behavior Borderline personality disorder (HCC) Borderline personality disorder documented in this encounter Advance Directives Latest Code Status on File Code Status Date Activated Date Inactivated Comments Full Code 01/30/2022 8:12 AM 02/02/2022 11:53 AM This o rder reflects the patients wishes and were consensually agreed upon. Care Teams Sound Equipment Mechanic Relationship Specialty Start Date End Date Yanna Borja DO [address] [place] [address] PCP - General Family Medicine 10/18/22 documented as of this encounter
--- OUTSIDE RECORDS SUMMARY | 2024-03-20 20:39 | External Medical Summary | Summary of Care ---
Author Name Unknown Organization [facility] Address [address] [place] [address] Phone [phone] Care Team Providers Care Agency Director Name Role Phone Yanna Borja DO Primary Care Provider Reason for Visit * Reason Onset Date Comments Advice 12/06/2023 Encounter Details Date Type Department Care Team (Late st Contact Info) Description 12/06/2023 Telephone Located Within [facility] [address] [place] [address] Yanna Borja DO [address] [place] [address] Advice Allergies Active Allergy Reactions Criticality Noted Date Comments Mirtazapine 06/11/2021 Swelling per psych records from the [facility] 04/2021 documented as of this encounter (statuses as of 03/06/2024) Medications Medication Sig Dispensed Refills Start Date [...] MOUTH AT BEDTIME NEEDED 0 11/24/2023 Active documented as of this encounter (statuses as of 03/06/2024) Active Problems Problem Noted Date Diagnosed Date Prediabetes 12/12/2023 Hyperinsulinemia 12/12/2023 Bipolar 2 disorder, major depressive episode 08/2024 Borderline personality disorder 11/10/2023 Eating disorder 01/30/2022 Bipolar disorder 01/30/2022 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 Foreign body alimentary tract 01/30/2022 Palpitations 12/02/2015 Chronic rhinitis 12/16/2010 documented as of this encounter (statuses as of 03/06/2024) Resolved Problems Problem Noted Date Diagnosed Date [...] as of this encounter (statuses as of 03/06/2024) Immunizations Name Administration Dates Next Due DTaP [...] Answer Date Recorded PHQ Adult Total Score 15 02/06/2024 Hunger Vital Sign Answer Date Recorded Within [...] encounter Miscellaneous Notes * Telephone Encounter - Clemencia Chopra OSA - 12/06/2023 1:41 PM EST Reason for patient's call: Appointment Caller was transferred to [place] at the clinic. documented in this encounter Plan of Treatment Upcoming Encounters Date Type Department Care Team (Late st Contact Info) Description 11/30/2024 8:00 AM EST Office Visit Located Within [facility] [address] [place] [address] Nelly Graf PA-C [address] [place] [address] Health Maintenance Due Date Last Done Comments Pneumococcal Vaccine: Pediatrics (0 to 5 Years) and At-Risk Patients (6 to 64 Years) (1 of 1 - PPSV23 or PCV20) 01/30/2010 05/06/2005, 2004, 2004, Additional history exists GARDASIL-HPV IMMUNIZATION SERIES (2 - 2-dose series) 04/22/2016 10/22/2015 Gonorrhea / Chlamydia Screen 01/30/2019 HIV Screening 01/30/2019 Hepatitis C Screening 01/30/2022 COVID-19 Vaccine ( - 2022- season) 2023 Depression, Most Recent Score >= [...] and were consensually agreed upon. Care Teams Agency Director Relationship Specialty Start Date End Date Yanna Borja DO [address] [facility] [place] [address] PCP - General Family Medicine 10/18/22 documented as of this encounter
--- OUTSIDE RECORDS SUMMARY | 2024-03-20 20:39 | External Medical Summary | Summary of Care ---
Author Name Unknown Organization [facility] Address [address] [place] [address] Phone [phone] Care Team Providers Care Ampoule Sealer Name Role Phone Yanna Borja DO Primary Care Provider [phone] Reason for Visit * Reason Comments Acute [...] Description 02/06/2024 1:20 PM EDT Office Visit [facility] [address] [place] [address] February, Colin Chappell MD [address] [place] [address] Seizure-like activity (HCC)*; Bipolar disorder, current episode depressed, severe, without psychotic features (HCC); Borderline personality disorder (HCC) Allergies Active Allergy Reactions Criticality Noted Date Comments Mirtazapine 06/11/2021 Swelling per psych records from the [facility] 04/2021 documented as of this [...] episode. Patient does not drive. Follows with [facility] for psychiatric care. Physical Exam Vitals: 02/06/24 [...] note has been completed in part utilizing [employer] Speech Voice Recognition Software. Due to technical [...] 02/21/2024 10:30 AM EDT NeuroDiagnostic Study Neurophysiology [facility] [address] [facility] [place] [address] Sp, Neurophys Tech [address] [facility] [address] 11/30/2024 8:00 AM EST Office Visit [facility] [address] [place] [facility] [place] [address] Nelly Graf PA-C [address] [place], [place] [phone] Scheduled Orders Name Type Priority Associated Diagnoses [...] and were consensually agreed upon. Care Teams Ampoule Sealer Relationship Specialty Start Date End Date Yanna Borja DO [address] [place] [address] PCP - General Family Medicine 10/18/22 documented as of this encounter
--- OUTSIDE RECORDS SUMMARY | 2024-03-20 20:39 | External Medical Summary | Summary of Care ---
Author Name Unknown Organization [facility] Address [address] [place] [address] Phone [phone] Care Team Providers Care Conference Assistant Name Role Phone Yanna Borja DO Primary Care Provider Encounter Details Date Type Department Care Team (Late st Contact Info) Description 01/27/2024 Patient Reported Data Patient Survey Ortho OBERD Allergies Active Allergy Reactions Criticality Noted Date Comments Mirtazapine 06/11/2021 Swelling per psych records from the [facility] 04/2021 documented as of this encounter (statuses as of 01/27/2024) Medications Medication Sig Dispensed Refills Start Date [...] 0 11/24/2023 Active Vitamin D3 50 MCG (1999 UT) Oral Capsule Take 1 Capsule by mouth in the morning. 90 Capsule 3 12/12/2023 Active metFORMIN HCl 500 MG Oral Tablet (Glucophage) Take 1 Tablet by mouth 2 times a day with morning and evening meals. 180 Tablet 0 01/08/2024 Active documented as of this encounter (statuses as of 01/27/2024) Active Problems Problem Noted Date Diagnosed Date Prediabetes 12/12/2023 Hyperinsulinemia 12/12/2023 Bipolar 2 disorder, major depressive episode 08/2024 Borderline personality disorder 11/10/2023 Eating disorder 01/30/2022 Bipolar disorder 01/30/2022 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 Foreign body alimentary tract 01/30/2022 Palpitations 12/02/2015 Chronic rhinitis 12/16/2010 documented as of this encounter (statuses as of 01/27/2024) Resolved Problems Problem Noted Date Diagnosed Date [...] as of this encounter (statuses as of 01/27/2024) Immunizations Name Administration Dates Next Due DTaP [...] Care Team (Late st Contact Info) Description 02/01/2024 1:30 PM EDT Office Visit Orthopaedics [facility] [address] [place] [address] Trey Ji PA-C [address] [place] [address] 11/30/2024 8:00 AM EST Office Visit [facility] [address] [place] [phone] Nelly Graf PA-C [address] [facility] [place] [address] Health Maintenance Due Date Last Done Comments Pneumococcal Vaccine: Pediatrics (0 to 5 Years) and At-Risk Patients (6 to 64 Years) (1 of 1 - PPSV23 or PCV20) 01/30/2010 05/06/2005, 2004, 2004, Additional history exists GARDASIL-HPV IMMUNIZATION SERIES (2 - 2-dose series) 04/22/2016 10/22/2015 Gonorrhea / Chlamydia Screen 01/30/2019 HIV Screening 01/30/2019 Hepatitis C Screening 01/30/2022 COVID-19 Vaccine (2022- season) 2023 Influenza Vaccine (FLU shot) (#1) 2023 09/25/2022, 10/19/2021, 10/19/2021, Additional history exists Depression, Most Recent Score >= 10 (will fire each visit until score < 10) 11/30/2023 11/29/2023 DTaP,Tdap,and Td Vaccines (7 - Td or Tdap) 05/29/2024 05/29/2014, 04/15/2009, 05/06/2005, Additional history exists HbA1c 11/29/2024 11/29/2023, 07/28/2021 [...] and were consensually agreed upon. Care Teams Conference Assistant Relationship Specialty Start Date End Date Yanna Borja DO [address] [place] [address] PCP - General Family Medicine 10/18/22 documented as of this encounter
--- OUTSIDE RECORDS SUMMARY | 2024-03-20 20:39 | External Medical Summary | Summary of Care ---
Author Name Unknown Organization [facility] Address [address] [place] [address] Phone [phone] Care Team Providers Care Front Attendant Name Role Phone Yanna Borja DO Primary Care Provider Encounter Details Date Type Department Care Team (Late st Contact Info) Description 01/27/2024 Patient Reported Data Patient Survey Ortho OBERD Allergies Active Allergy Reactions Criticality Noted Date Comments Mirtazapine 06/11/2021 Swelling per psych records from the [facility] 04/2021 documented as of this encounter [...] 02/01/2024 1:30 PM EDT Office Visit Orthopaedics [facility] [address] [place] [address] Trey Ji PA-C [address] [place] [address] 11/30/2024 8:00 AM EST Office Visit [facility] [address] [place] [phone] Nelly Graf PA-C [address] [facility] [place] [address] Health Maintenance Due Date Last Done Comments [...] and were consensually agreed upon. Care Teams Front Attendant Relationship Specialty Start Date End Date Yanna Borja DO [address] [place] [address] PCP - General Family Medicine 10/18/22 documented as of this encounter
--- OUTSIDE RECORDS SUMMARY | 2024-03-20 20:40 | External Medical Summary | Summary of Care ---
Author Name Unknown Organization [facility] Address [address] [place] [address] Phone [phone] Care Team Providers Care Central Stores Attendant Name Role Phone Yanna Borja DO Primary Care Provider [phone] Encounter Details Date Type Department Care Team [...] 02/01/2024 1:30 PM EDT Office Visit Orthopaedics [facility] [address] [place] [address] Trey Ji PA-C [address] [place] [address] 11/30/2024 8:00 AM EST Office Visit [facility] [address] [place] [phone] Nelly Graf PA-C [address] [facility] [place] [address] Health Maintenance Due Date Last Done Comments [...] and were consensually agreed upon. Care Teams Central Stores Attendant Relationship Specialty Start Date End Date Yanna Borja DO [address] [place] [address] PCP - General Family Medicine 10/18/22 documented as of this encounter
--- OUTSIDE RECORDS SUMMARY | 2024-03-20 20:40 | External Medical Summary | Summary of Care ---
Author Name Unknown Organization [facility] Address [address] [place] [address] Phone [phone] Care Team Providers Care Project Coach Name Role Phone Yanna Borja DO Primary Care Provider [phone] Reason for Referral * Evaluate & Treat - Unlimited Visits (Within 30 days (routine)) - Pending Review Specialty Diagnoses / Procedures Referred By Sinan salas Referred To Contact Orthopaedic Surgery / Orthopedics Diagnoses Right wrist pain Nelly Graf PA-C [address] [place] [address] Referral ID Status Reason Start Date Expiration Date Visits Requested Visits Authorized [id number] Pending Review Specialty Services Required 01/23/[phone] Question Answer Referral Priority Within 30 days (routine) [facility] this appointment be scheduled? [facility] What body part is the patient being seen for? Forearm/Wrist What condition is the patient being seen for? Weakness/Numbness/Tingling Encounter Details Date Type Department Care Team ([facility] st Contact Info) Description 01/23/2024 10:40 AM EDT Telemedicine [place] [address] [place] [phone] Nelly Graf PA-C [address] [place] [address] Right wrist pain* Allergies Active Allergy Reactions Criticality Noted Date Comments Mirtazapine 06/11/2021 Swelling per psych records from the [facility] 04/2021 documented as of this encounter (statuses as of 01/23/2024) Medications Medication Sig Dispensed Refills Start Date [...] as of this encounter (statuses as of 01/23/2024) Active Problems Problem Noted Date Diagnosed Date Prediabetes 12/12/2023 Hyperinsulinemia 12/12/2023 Bipolar 2 disorder, major depressive episode 08/2024 Borderline personality disorder 11/10/2023 Eating disorder 01/30/2022 Bipolar disorder 01/30/2022 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 Foreign body alimentary tract 01/30/2022 Palpitations 12/02/2015 Chronic rhinitis 12/16/2010 documented as of this encounter (statuses as of 01/23/2024) Resolved Problems Problem Noted Date Diagnosed Date [...] as of this encounter (statuses as of 01/23/2024) Immunizations Name Administration Dates Next Due DTaP [...] as of this encounter Progress Notes * Nelly Graf PA-C - 01/23/2024 10:42 AM EDT Images from the original note were not included. History of Present Illness Meeta Santos is a 18 year old adult that presents for No chief complaint on file. Due to COVID 19 pandemic, this visit was done via video. Patient is established with the practice. Last face to face visit was 11/29/2023. Call start time: 1042 Patient location: HOME. I was in a hospital or clinic location. After connecting through televideo,patient was verified with two unique identifiers. 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 Methods to assure confidentiality were taken. Patient acknowledged consent and understanding of pr ivacy and security of the Telemedicine visit. The patient agreed to participate. 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 BP Readings from Last 3 Encounters: 11/29/23 114/66 11/10/23 124/72 08/11/23 124/64 Wt Readings from Last 3 Encounters: 11/29/23 90.4 kg (199 lb 6.4 oz) (97%, Z= 1.93)* 11/10/23 91.2 kg (201 lb) (97%, Z= 1.96)* 08/11/23 94.9 kg (209 lb 4.8 oz) (98%, Z= 2.08)* * Growth percentiles are based on CDC (Girls, 2-20 Years) data. BMI Readings from Last 3 Encounters: 11/29/23 32.18 kg/m (95%, Z= 1.67)* 08/11/23 33.78 kg/m (96%, Z= 1.78)* 11/26/22 32.57 kg/m (96%, Z= 1.74)* * Growth percentiles are based on CDC (Girls, 2-20 Years) data. Ht Readings from Last 3 Encounters: 11/29/23 1.676 m (5' 6") (75%, Z= 0.67)* 08/11/23 1.676 m (5' 6") (75%, Z= 0.67)* 11/26/22 1.676 m (5' 6") (75%, Z= 0.68)* * Growth percentiles are based on CDC (Girls, 2-20 Years) data. Pt tries tinel's at home She has tingling with this in to her hand Assessment and Plan Right wrist pain (Primary) - ORTHOPAEDICS REFERRAL OP Follow-up: Return if symptoms worsen or fail to improve. | Check-out note: Ortho for wrist pain - poss cts Pt vs night splint vs ortho Suggest ortho - get them to eval for cts vs wrist tendonitis / sprain and go from there. Pt agrees with plan Wrap-Up Time: I spent a total of 10-19 minutes (exact time 10 mins) on the date of service in preparation, delivery, and documentation of the care provided to Meeta Santos excluding any time spent in the performance of separately billed services. Nelly Graf PA-C 01/23/2024 10:46 AM documented in this encounter Plan of Treatment Upcoming Encounters Date Type Department Care Team (Late st Contact Info) Description 11/30/2024 8:00 AM EST Office Visit [facility] [address] [place] [phone] Nelly Graf PA-C [address] [place] [address] Scheduled Referrals Name Type Priority Associated Diagnoses Order Schedule ORTHOPAEDICS REFERRAL OP Referral Within 30 days (routine) Right wrist pain Ordered: 01/23/2024 Health Maintenance Due Date Last Done Comments Pneumococcal Vaccine: Pediatrics (0 to 5 Years) and At-Risk Patients (6 to 64 Years) (1 of 1 - PPSV23 or PCV20) 01/30/2010 05/06/2005, 2004, 2004, Additional history exists GARDASIL-HPV IMMUNIZATION SERIES (2 - 2-dose series) 04/22/2016 10/22/2015 Gonorrhea / Chlamydia Screen 01/30/2019 HIV Screening 01/30/2019 Hepatitis C Screening 01/30/2022 COVID-19 Vaccine ( - 2022- season) 2023 Influenza Vaccine (FLU shot) (#1) [...] as of this encounter Visit Diagnoses Diagnosis Right wrist pain- Primary Pain in joint, forearm documented in this encounter Advance Directives Latest Code Status on File Code Status Date Activated Date Inactivated Comments Full Code 01/30/2022 8:12 AM 02/02/2022 11:53 AM This o rder reflects the patients wishes and were consensually agreed upon. Care Teams Project Coach Relationship Specialty Start Date End Date Yanna Borja DO [address] [place] [address] PCP - General Family Medicine 10/18/22 documented as of this encounter
--- OUTSIDE RECORDS SUMMARY | 2024-03-20 20:40 | External Medical Summary | Summary of Care ---
Author Name Unknown Organization [facility] Address [address] [place] [address] Phone [phone] Care Team Providers Care Senior Partner Name Role Phone Yanna Borja DO Primary Care Provider [phone] Encounter Details Date Type Department Care Team (Late st Contact Info) Description 01/27/2024 Patient Reported Data Patient Survey Ortho OBERD Allergies Active Allergy Reactions Criticality Noted Date Comments Mirtazapine 06/11/2021 Swelling per psych records from the [facility] 04/2021 documented as of this [...] 02/01/2024 1:30 PM EDT Office Visit Orthopaedics [facility] [address] [place] [address] Trey Ji PA-C [address] [place] [address] 11/30/2024 8:00 AM EST Office Visit [facility] [address] [place] [phone] Nelly Graf PA-C [address] [facility] [place] [address] Health Maintenance Due Date Last Done Comments [...] were consensually agreed upon. Care Teams Senior Partner Relationship Specialty Start Date End Date Yanna Borja DO [address] [place] [address] PCP - General Family Medicine 10/18/22 documented as of this encounter
--- OUTSIDE RECORDS SUMMARY | 2024-03-20 20:40 | External Medical Summary | Summary of Care ---
Author Name Unknown Organization [facility] Address [address] [place] [place] [address] Phone [phone] Care Team Providers Care All Source Collection Manager Name Role Phone DariuszYanna calvo Chevy NGUYỄN Primary Care Provider Reason for Visit * Reason Onset Date Comments Medical Nutrition Therapy 01/10/2024 Encounter Details Date Type Department Care Team (Late st Contact Info) Description 01/10/2024 9:00 AM EDT Scheduled Telephone Bruno Alvarez [address] [place] [address] Jihan Jordan RDN [address] [place] [phone] Allergies Active Allergy Reactions Criticality Noted Date Comments Mirtazapine 06/11/2021 Swelling per psych records from the [facility] 04/2021 documented as of this encounter (statuses as of 01/10/2024) Medications Medication Sig Dispensed Refills Start Date [...] as of this encounter (statuses as of 01/10/2024) Active Problems Problem Noted Date Diagnosed Date Prediabetes 12/12/2023 Hyperinsulinemia 12/12/2023 Bipolar 2 disorder, major depressive episode 08/2024 Borderline personality disorder 11/10/2023 Eating disorder 01/30/2022 Bipolar disorder 01/30/2022 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 Foreign body alimentary tract 01/30/2022 Palpitations 12/02/2015 Chronic rhinitis 12/16/2010 documented as of this encounter (statuses as of 01/10/2024) Resolved Problems Problem Noted Date Diagnosed Date [...] as of this encounter (statuses as of 01/10/2024) Immunizations Name Administration Dates Next Due DTaP HIB - Dipth/Tet/Acell Pert/HIB /03/2009,05/06/2005,2004,12/2003,2004 HIB PRP-T, 4 dose (ActHib) 02/01/2005,,2004,12/2003 HPV [...] Recorded PHQ Adult Total Score 20 11/29/2023 Sex and Gender Information Value Date Recorded Sex Assigned at Female 05/12/2023 1:03 PM EDT Gender Identity Other 05/12/2023 1:03 PM EDT Sexual Orientation Lesbian 05/12/2023 1: 03 PM EDT Job Start Date Occupation Industry Not on file Not on file Not on file documented as of this encounter Miscellaneous Notes * Telephone Encounter - Jihan Jordan RDN - 01/10/2024 5:00 PM EDT Attempted to contact pt via cell phone regarding rescheduling missed follow-up nutrition appointment from December 14. Left message on pt's voicemail regarding rescheduling missed appointment. Jihan Jordan RDN, Clinical Dietitian II, [facility] Clinical Nutrition Services [facility] [phone] [place] [phone] Available via [employer] documented in this encounter Plan of Treatment Upcoming Encounters Date Type Department Care Team (Late st Contact Info) Description 11/30/2024 8:00 AM EST Office Visit [facility] [address] [place] [address] Nelly Graf PA-C [address] [place] [address] Health Maintenance Due Date Last Done Comments Pneumococcal Vaccine: Pediatrics (0 to 5 Years) and At-Risk Patients (6 to 64 Years) (1 of 1 - PPSV23 or PCV20) 01/30/2010 05/06/2005, 2004, 2004, Additional history exists GARDASIL-HPV IMMUNIZATION SERIES (2 - 2-dose series) 04/22/2016 10/22/2015 Gonorrhea / Chlamydia Screen 01/30/2019 HIV Screening 01/30/2019 Hepatitis C Screening 01/30/2022 COVID-19 Vaccine ( season) 2023 Influenza Vaccine (FLU shot) (#1) [...] and were consensually agreed upon. Care Teams All Source Collection Manager Relationship Specialty Start Date End Date [facility]anna Borja [facility] [address] [facility] [place] [address] PCP - General Family Medicine 10/18/22 documented as of this encounter
--- OUTSIDE RECORDS SUMMARY | 2024-03-20 20:40 | External Medical Summary | Summary of Care ---
Author Name Unknown Organization [facility] Address [address] [place] [address] Phone [phone] Care Team Providers Care Table Saw Operator Name Role Phone Yanna Borja DO Primary Care Provider Encounter Details Date Type Department Care Team (Late st Contact Info) Description 01/27/2024 Patient Reported Data Patient Survey Ortho OBERD Allergies Active Allergy Reactions Criticality Noted Date Comments Mirtazapine 06/11/2021 Swelling per psych records from the [facility] 04/2021 documented as of this encounter (statuses [...] 02/01/2024 1:30 PM EDT Office Visit Orthopaedics [facility] [address] [place] [address] Trey Ji PA-C [address] [place] [phone] 11/30/2024 8:00 AM EST Office Visit [facility] [address] [place] [phone] Nelly Graf PA-C [address] [facility] [place] [address] Health Maintenance Due Date Last Done Comments [...] and were consensually agreed upon. Care Teams Table Saw Operator Relationship Specialty Start Date End Date Yanna Borja DO [address] [place] [address] PCP - General Family Medicine 10/18/22 documented as of this encounter
--- OUTSIDE RECORDS SUMMARY | 2024-03-20 20:40 | External Medical Summary | Summary of Care ---
Author Name Unknown Organization [facility] Address [address] [place] [address] Phone [phone] Care Team Providers Care Vice President Of Talent Management Name Role Phone UbaldonandaYanna calvo Primary Care Provider Encounter Details Date Type Department Care Team (Late st Contact Info) Description 01/11/2024 Orders Only [facility] [address] [place] [address] Nelly Graf PA-C [address] [place] [address] Allergies Active Allergy Reactions Criticality Noted Date Comments Mirtazapine 06/11/2021 Swelling per psych records from the [facility] 04/2021 documented as of this encounter (statuses as of 01/11/2024) Medications Medication Sig Dispensed Refills Start Date [...] as of this encounter (statuses as of 01/11/2024) Active Problems Problem Noted Date Diagnosed Date Prediabetes 12/12/2023 Hyperinsulinemia 12/12/2023 Bipolar 2 disorder, major depressive episode 08/2024 Borderline personality disorder 11/10/2023 Eating disorder 01/30/2022 Bipolar disorder 01/30/2022 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 Foreign body alimentary tract 01/30/2022 Palpitations 12/02/2015 Chronic rhinitis 12/16/2010 documented as of this encounter (statuses as of 01/11/2024) Resolved Problems Problem Noted Date Diagnosed Date [...] as of this encounter (statuses as of 01/11/2024) Immunizations Name Administration Dates Next Due DTaP HIB - Dipth/Tet/Acell Pert/HIB 06/03/2009,05/06/2005,2004,08/0 12/2003,2004 HIB PRP-T, 4 dose (ActHib) 02/01/2005,,2004,12/2003 HPV [...] Description 11/30/2024 8:00 AM EST [facility] [address] [facility] [address] Nelly Graf PA-C [address] [facility] [phone] Health Maintenance Due Date Last Done Comments [...] Not on filedocumented as of this encounter Procedures Procedure Name Priority Date/Time Associated Diagnosis Comments CHEMISTRY-OUTSIDE Routine 01/02/2024 documented in this encounter Results * (ABNORMAL) CHEMISTRY-OUTSIDE (01/02/2024) Not all results display below - see scan for full detail OUTSIDE LAB (SEE SCANNED REPORT) Comment:SCAN INCLUDES - LP CREATININE-OUTSID E LAB OUTSIDE LAB (SEE SCANNED REPORT) EGFR-OUTSIDE LAB OUT SIDE LAB (SEE SCANNED REPORT) POTASSIUM-OUTSIDE LAB OUTSIDE LAB (SEE SCANNED REPORT) GLUCOSE-OUTSIDE LAB OUTSIDE LAB (SEE SCANNED REPORT) HOURS FASTING OUTSID E LAB (SEE SCANNED REPORT) TRIGLYCERIDES-OUT SIDE LAB 120(A) 0 - 89 MG/DL OUTSIDE LAB (SEE SCANNED REPORT) CHOLESTEROL-OUTSI DE LAB 174(A) 100 - 169 MG/DL OUTSIDE LAB (SEE SCANNED REPORT) HDL-OUTSIDE LAB 35(L) >39 MG/DL OUTS [facility] (SEE SCANNED REPORT) CHOL/HDL RATIO-OUTSIDE LAB OUTSIDE LA B (SEE SCANNED REPORT) LDL (CALCULATED)-OUTS [facility] 117(A) 0 - 109 MG/DL OUTSIDE LAB (SEE SCANNED REPORT) LDL (DIRECT MEASURE)-OUTSIDE LAB OUTSIDE LAB (SEE SCANNED REPORT) HEMOGLOBIN, [id number] LAB OUTSIDE LAB (SEE SCANNED REPORT) PHOSPHORUS-OUTSID E LAB OUTSIDE LAB (SEE SCANNED REPORT) PTH-OUTSIDE LAB OUTS [facility] (SEE SCANNED REPORT) MICROALBUMIN RATIO-OUTSIDE LAB OUTSIDE LA B (SEE SCANNED REPORT) PROTEIN, UA-OUTSIDE LAB OUTSIDE LAB (SEE SCANNED REPORT) HGB OUTSIDE LA B (SEE SCANNED REPORT) 01/02/2024 Jaskaran Brizuela MD LABORATORY OUTSIDE LAB (SEE SCANNED REPORT) documented in this encounter Advance Directives Latest Code Status on File Code Status Date Activated Date Inactivated Comments Full Code 01/30/2022 8:12 AM 02/02/2022 11:53 AM This o rder reflects the patients wishes and were consensually agreed upon. Care Teams Vice President Of Talent Management Relationship Specialty Start Date End Date Yanna Borja DO [address] [place] [address] PCP - General Family Medicine 10/18/22 documented as of this encounter
--- OUTSIDE RECORDS SUMMARY | 2024-03-20 20:40 | External Medical Summary | Summary of Care ---
Author Name Unknown Organization [facility] Address [address] [place] [address] Phone [phone] Care Team Providers Care Systems Navigator Name Role Phone Yanna Borja DO Primary Care Provider [phone] Encounter Details Date Type Department Care Team (Late st Contact Info) Description 01/27/2024 Patient Reported Data Patient Survey Ortho OBERD Allergies Active Allergy Reactions Criticality Noted Date Comments Mirtazapine 06/11/2021 Swelling per psych records from the [facility] 04/2021 documented as of this encounter (statuses [...] 02/01/2024 1:30 PM EDT Office Visit Orthopaedics [facility] [address] [place] [address] Trey Ji PA-C [address] [place] [address] 11/30/2024 8:00 AM EST Office Visit [facility] [address] [place] [phone] Nelly Graf PA-C [address] [facility] [place] [address] Health Maintenance Due Date Last Done Comments [...] and were consensually agreed upon. Care Teams Systems Navigator Relationship Specialty Start Date End Date Yanna Borja DO [address] [place] [address] PCP - General Family Medicine 10/18/22 documented as of this encounter
--- OUTSIDE RECORDS SUMMARY | 2024-03-20 20:40 | External Medical Summary | Summary of Care ---
Author Name Unknown Organization [facility] Address [address] [place] [address] Phone [phone] Care Team Providers Care Retail Clerk Name Role Phone Temi Pepe DO Primary Care Provider Encounter Details Date Type Department Care Team (Late st Contact Info) Description 01/05/2024 Refill [facility] [address] [place] [address] Temi Pepe DO [address] [place] [address] Allergies Active Allergy Reactions Criticality Noted Date Comments Mirtazapine 06/11/2021 Swelling per psych records from the [facility] 04/2021 documented as of this encounter (statuses as of 01/08/2024) Medications Medication Sig Dispensed Refills Start Date [...] evening meals. 180 Tablet 0 01/08/2024 Active metFORMIN HCl 500 MG Oral Tablet (Glucophage) Take 1 Tablet by mouth 2 times a day with morning and evening meals. 60 Tablet 5 12/12/2023 01/05/2024 Discontinued documented as of this encounter (statuses as of 01/08/2024) Active Problems Problem Noted Date Diagnosed Date Prediabetes 12/12/2023 Hyperinsulinemia 12/12/2023 Bipolar 2 disorder, major depressive episode 08/2024 Borderline personality disorder 11/10/2023 Eating disorder 01/30/2022 Bipolar disorder 01/30/2022 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 Foreign body alimentary tract 01/30/2022 Palpitations 12/02/2015 Chronic rhinitis 12/16/2010 documented as of this encounter (statuses as of 01/08/2024) Resolved Problems Problem Noted Date Diagnosed Date [...] as of this encounter (statuses as of 01/08/2024) Immunizations Name Administration Dates Next Due DTaP [...] encounter Miscellaneous Notes * Telephone Encounter - Temi Pepe DO - 01/08/2024 5:58 PM EDTSigned Prescriptions: Disp Refills metFORMIN HCl 500 MG Oral Tablet (Glucopha*180 Ta*0 Sig: Take 1Tablet by mouth 2 times a day with morning and evening meals.Authorizing Provider: TEMI PEPE documented in this encounter Plan of Treatment Upcoming Encounters Date Type Department Care Team (Late st Contact Info) Description 11/30/2024 8:00 AM EST Office Visit [facility] [address] [place] [address] Nelly Graf PA-C [address] [place], [place] [phone] Health Maintenance Due Date Last Done Comments [...] and were consensually agreed upon. Care Teams Retail Clerk Relationship Specialty Start Date End Date Temi Pepe DO [address] [facility] [place] [address] PCP - General Family Medicine 10/18/22 documented as of this encounter
[2024-03-20] MEDS: hydrOXYzine HCl 25 MG TAB PO PRN (20:48)
[2024-03-20] MEDS: lamoTRIgine 100 MG TAB PO SCH (20:49)
[2024-03-21 06:13] LABS: Hematocrit (blood only) 38.6 % (37.0-47.0); Hemoglobin 12.2 g/dl (12.0-16.0); Mean Corpuscular Hemoglobin 25.1 pg (25.0-34.0); Mean Corpuscular Hgb Conc 31.6 g/dL (32.0-36.0); Mean Corpuscular Volume 79.3 fL (80.0-100.0); Mean Platelet Volume 9.4 fL (9.4-12.4); Platelet Count 291 K/uL (130-400); Red Blood Count 4.87 M/uL (4.20-5.40); White Blood Count 7.85 K/ul (4.8-10.8)
[2024-03-21 06:30] LABS: BUN Creatinine Ratio 12.2 (10-20); Calcium 9.6 mg/dl (8.6-10.3); Creatinine Clr Calc Pharmacy 123.7 ml/min; Est GFR (African American) 119.4 ml/min; Potassium 4.2 mmol/L (3.5-5.1)
[2024-03-21] MEDS: buPROPion XL 300 MG TABCR PO SCH (07:55)
[2024-03-21] MEDS: NICOTINE 14 MG/24 HR PATCH TD SCH (07:55)
[2024-03-21] MEDS: CHOLECALCIFEROL 25 MCG (1000 UNITS) TAB PO SCH (07:56)
--- NOTE | 2024-03-21 10:16 | Discharge Summary ---
Date of Service March 21, 2024 Admission HPI Per Admitting Provider This is a 19-year-old biological female who goes by Castro (them/their/they), with PMHx of generalized anxiety with panic attack, bipolar disorder, borderline personality disorder, history of suicidal attempt at age 17 and chronic tobacco and marijuana use. Pt presents today with complaint of accidentally ingesting Wellbutrin 900 mg extended release last night around 11 PM. Pt states typically takes Lamictal 3 tablets in the evening (total 300 mg), and due to grabbing of the bottle in the dark, did not see what had actually been picked up. Patient complains of increased shakiness this morning as well as heart palpitations or feeling like it missed a beat. Castro presented to the ER and poison control was contacted. Poison control is recommending observation of the patient for 24 hours due to the increased seizure risk 24 hours after ingestion of more than 600 mg Wellbutrin. Pt admits to smoking 1 ppd cigarrettes as well as smokes marijuana daily. She last smoked marijuana a few days ago. Pt also notes that she had been cutting her Wellbutrin tablets in half because she ran out of the normal 150 mg ER tablets. We had a long discussion about not cutting them in half, and proper disposal of medication such as returning the medications to a pharmacy. Pt denies potential for . States she doesn't know when her last menses was but that it has been irregular all her life. Pt is sexually active with women, denies control use, discussion was held regarding barrier protection for STIs. Pt expressed understanding. Admission Exam Per Admitting Provider General: awake, alert, no apparent distress, white female Head: Normocephalic, atraumatic ENT: PERRL, EOMI, no pharyngeal exudate, mucous membranes moist Chest: Clear to auscultation, on room air, no adventitious breath sounds Cardiac: Regular rate and rhythm, no murmur, no JVD, normal peripheral pulses, good capillary refill Abdominal: NABS x 4 quadrants, soft, nondistended, nontender to palpation, no rebound or guarding Extremities: Normal inspection, no peripheral edema or erythema, calfs nontender to palpation Psych: Normal mood and affect, no suicidal ideations or homicidal ideations Neuro: AAO x 3, strength intact bilaterally and rated 5/5, no motor deficits, speech is clear, no peripheral sensory deficits Principal Diagnosis Accidental overdose Discharge Exam General: WD/WN in NAD Head: Normocephalic, atraumatic ENT: PERRL, EOMI, mucous membranes moist Chest: Clear to auscultation, on room air, no adventitious breath sounds Cardiac: Regular rate and rhythm, no murmur, no JVD Abdominal: NABS x 4 quadrants, soft, nondistended, nontender to palpation Extremities: Normal inspection, no peripheral edema or erythema Psych: Normal mood and affect, no suicidal ideations or homicidal ideations Neuro: AAO x 3, no motor deficits, speech is clear, no facial asymmetry, answers appropriately Skin: warm, dry, multiple piercings facial Discharge Data Allergies Allergy/AdvReac Type Severity Reaction Status Date / Time mirtazapine [From Remeron] Allergy Intermediate TONGUE Verified 03/20/24 11:47 SWELLED Consultations 03/20/24 11:39 ED Decision to Admit Stat 03/21/24 09:10 Consult Behavioral Health Liaison Routine Hospital Course (1) Accidental overdose: (2) Bipolar disorder: (3) Generalized anxiety disorder with panic attacks: (4) Post traumatic stress disorder (PTSD): (5) Tobacco use: (6) Marijuana use: (7) Borderline personality disorder: - Admitted to med surg for observation - Poison control contacted and recommended 24 hrs observation due to increased risk for seizure with ingestion of Wellbutrin ER 900 mg total since it is over 600 mg threshold. - EKG reviewed without acute changes, noted prolonged QTC - Follows with outpt psych with [facility] -- pt has follow up with them on 03/21 at 1:30pm. - Hx of intentional overdose, at this time seems like this was accidental. 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 - Discussed with psychiatry liason - Theresa - do not feel pt needs to be seen by psychiatrist as inpt - ok for DC and follow up as outpt - plans to update her outpt providers as well - pls see her note for full detail - Discussion held with admitting team regarding smoking cessation at bedside - encouraged slow taper off 3# cigs weekly, enforced wellbutrin should help with cravings, also habit of drawing to help her relax. Pt uses marijuana and has medical card. - urine drug tox screen ordered - and full results pending however positive for marijuana, MDMA/ Ecstasy, and meth so far - pt denies any illicit drug use - says she uses marijuana - overall she feels well and would like to be discharged - plans to follow up with her outpt providers Total Time Total Time Spent Total Time Spent (In Minutes): 40 Discharge Plan Discharge Items Patient Disposition: Home - Self-Care Reason For Visit: ACCIDENTAL OVERDOSE Discharge Diagnosis: Accidental overdose Condition on Discharge: Good Activity: Per Instructions section Non-emergency contact: Primary Care Provider and Psychiatrist Call non-emergency contact if: you have any medication questions and your symptoms worsen Follow-up/Referrals: Yanna Borja DO [Primary Care Provider] - (Date & Time 03/28/2024 10:50 AM Provider Yanna Borja DO Department [facility] ) Diet: Regular Addtl Attending Provider Instructions: Follow up with your primary care provider and psychiatrist. There were no medication changes made during your hospital stay. It is crucial that you take your medications exactly as prescribed. Pending Studies at Discharge: No Stand-Alone Forms: My [facility] [employer], Smoking Cessation Medications and DC Order Prescriptions: Continued clonazepam 1 mg tablet 2 mg PO DAILY PRN (Reason: Anxiety) Hold Instructions: Until further instructions by your Psychiatrist Rx Instructions: Panic attacks hydroxyzine HCl 50 mg tablet See Rx Instructions .ROUTE .COMPLEX Rx Instructions: Take 50mg to 100mg by mouth at bedtime as needed for sleep cholecalciferol (vitamin D3) [Vitamin D3] 50 mcg (2,000 unit) capsule 2,000 unit PO QAM lamotrigine 100 mg tablet 300 mg PO QPM bupropion HCl 300 mg tablet extended release 24 hr 300 mg PO QAM Discharge Orders: Discharge Order (Routine); Ordered 03/21/24 Ordered By: Reese Luna/Other Patient Handouts: E Cigarettes and Vaping Admission Data Admit Date/Time: 03/20/24 11:53 Attending Provider: Reese Slade Admit Provider: Volodymyr Esteves Primary Care Provider: Yanna Borja Other Providers: Volodymyr Esteves Other Interventions: Discharge Summary Assessment (RN) Last Done: 03/21/24 09:35
== END 2024-03-21 11:45 | disposition home or self-care (01) ==
LOC: ED 09:40 → EDINP 09:40 → 2N 12:27 → SUATTDRO 12:29 → 2N 13:27

== ENCOUNTER 2024-11-19 18:19 | Inpatient (IN) ==
--- NOTE | 2024-11-19 18:51 | Emergency Department Note ---
Impression & Plan Depression with suicidal ideation, Generalized anxiety disorder with panic attacks, Urinary tract infection ED Provider Note NAME: POLLO [id number] LATIA AGE: 19 SEX: F : 2005 ARRIVES VIA: Walk-In INFORMANT: Patient, ED PROVIDER(S): Ananda Duncan DO CHIEF COMPLAINT: Mental health evaluation HPI: The patient is a 19-year-old female who presented to the emergency department for mental health evaluation. The patient has a history of mental health problems. She was recently in group home. She got out of group home but was not prescribed any of her medications. She has been off her medications for approximately 7 to 10 days. She denies having any nausea or vomiting. She denies having any chest pain or fever. She has been noticing suicidal ideation as well as difficult with her thought process. The patient called crisis. She then called [facility] and was told if she was medically cleared she would likely be able to be accepted there. ROS: See above HPI for pertinent positives & negatives. A total of 10 systems reviewed and were otherwise negative. PAST MEDICAL HISTORY: See Below PAST SURGICAL HISTORY: See Below FAMILY HISTORY: See Below SOCIAL HISTORY: See Below HOME MEDICATIONS: See Below ALLERGIES: See Below VITALS: See Below PHYSICAL EXAMINATION: GENERAL: Patient is awake alert in no acute distress patient is resting comfortably and showing no signs of anxiety EYES: The conjunctivae are clear. The pupils are round and reactive. EARS, NOSE, MOUTH AND THROAT: The nose is without any evidence of any deformity. Mucous membranes are moist. Tongue is midline. NECK: The neck is nontender and supple. RESPIRATORY: Normal respiratory effort is noted there is no evidence of wheezing rhonchi or rales CARDIOVASCULAR: Regular rate and rhythm noted there no murmurs rubs or gallops normal S1 normal S2. GASTROINTESTINAL: The abdomen is soft. Abdomen is nontender. MUSCULOSKELETAL/EXTREMITIES: There is no evidence of gross deformity full range of motion is noted in the hips and shoulders. SKIN: There is no obvious evidence of any rash. There are no petechiae, pallor or cyanosis noted. NEUROLOGIC: Patient is awake alert and oriented x3 PSYCH: The patient makes poor eye contact. Her affect is flat. She continues to admit to suicidal ideation. MEDICAL DECISION MAKING: The patient is a 19-year-old female who presented to the emergency department for mental health evaluation. The patient has a history of mental health issues in the past. She was recently in [facility]. She was not able to get her medications upon discharge from [facility]. Patient presented to the emergency department today because of ongoing worsening symptoms. The patient was medically cleared in the emergency department but was found to have signs of urinary tract infection on urinalysis. She was treated with oral antibiotics in emergency department. I discussed the patient's condition with her. She was medically cleared. She was evaluated by the mental health housing case manager. She was felt to be a good candidate for inpatient treatment. She was referred to [facility]. and was evaluated by the delegate from 3 . She was felt to be a good candidate for admission to [facility]. The 201 was signed by myself. Triage Nursing notes reviewed. Prior medical records reviewed Vital Signs: reviewed and remarkable for no significant abnormalities Differential diagnosis: Mood disorder, infection, hypoglycemia, electrolyte abnormalities, cardiac sources, intracerebral event, toxicologic, trauma, neurologic, as well as other pathologies. ER treatment provided: See below Diagnostics interpreted by me: ECG: none Laboratory studies: As stated above and show below. Imaging studies: See below. Consultation(s): I discussed this case with the emergency department mental health housing case manager. Past Med/Surg History Problem List (Updated 11/19/24 @ 21:50 by Ananda Duncan DO) Urinary tract infection (Acute) Depression with suicidal ideation (Acute) Marijuana use Tobacco use Accidental overdose (Acute) Laceration of left leg (Acute) Prolonged QT interval (Acute) Leukocytosis (Acute) Altered mental status (Acute) Tachycardia (Acute) Drug overdose, multiple drugs (Acute) Lab test negative for COVID-19 virus (Acute) Self-harm Borderline personality disorder Post traumatic stress disorder (PTSD) Generalized anxiety disorder with panic attacks (Acute) Bipolar disorder Medical History Post traumatic stress disorder (PTSD) Depression with suicidal ideation Attention deficit disorder (ADD) Anxiety Depression Surgical History No pertinent past surgical history Social History Smoking Status: Never smoker Tobacco Type: Cigarettes Second Hand Exposure: No; Do You Dip or Chew Tobacco: No; Hx Alcohol Use: Yes Alcohol type: hard liquor Hx Substance Use: Yes Last Used Substance: Hours (ago) Preferred Language: Cymraes Communication Ability: Effective Custodial Worker Required: No Beliefs That Will Affect Care: None Current Living Situation: Significant Other Current Living Situation Comment: [facility] Feels Safe at Home: Yes Gender Identity: Female Assistive Devices: None Allergies Allergies Allergy/AdvReac Type Severity Reaction Status Date / Time mirtazapine [From Remeron] Allergy Intermediate TONGUE Verified 03/20/24 11:47 SWELLED Home Meds Home Medications Medication Instructions Recorded Confirmed clonazepam 1 mg tablet 2 mg PO DAILY PRN Anxiety 10/30/23 11/19/24 lamotrigine 100 mg tablet 400 mg PO QPM 03/20/24 11/19/24 metformin 500 mg tablet 1,000 mg PO 2XD 11/19/24 11/19/24 Results & Data (ED) Vital Signs Vital Signs - 24 hr 11/19/24 18:22 11/19/24 20:20 Temperature 36.7 C Temperature Source Temporal Artery Scan Pulse Rate 73 Pulse Rate [Right Finger] 93 H Respiratory Rate 18 18 Respiratory Effort / Characteristics Non-Labored Spontaneous Respiratory Depth Normal Blood Pressure 117/77 Blood Pressure [Left Arm] 111/73 Blood Pressure Mean 90 Blood Pressure Mean [Left Arm] 85 Blood Pressure Position [Left Arm] Sitting Pulse Oximetry 99 100 Oxygen Delivery Method Room Air Room Air Sepsis Recent Fever Within 48 Hours No Sepsis New/Unexplained Change in Mental Status N/A Sepsis Action Taken by Nursing No Action Required Home Medications Current Medication List: was personally reviewed by me Laboratory Data Attestation: I reviewed the patient's lab results. 11/19/24 18:40 11/19/24 18:40 Lab Results 11/19/24 Range/Units 18:40 WBC 9.18 (4.8-10.8) K/ul RBC 4.60 (4.20-5.40) M/uL Hgb 12.9 (12.0-16.0) g/dl Hct 39.4 (37.0-47.0) % MCV 85.7 (80.0-100.0) fL MCH 28.0 (25.0-34.0) pg MCHC 32.7 (32.0-36.0) g/dL RDW Std Deviation 46.2 (36.4-46.3) fL RDW Coeff of Wood 14.8 H (11.5-14.5) % Plt Count 347 (130-400) K/uL MPV 9.3 L (9.4-12.4) fL Immature Gran % (Auto) 0.7 % Neut % (Auto) 67.6 % Lymph % (Auto) 21.7 % Granite % (Auto) 8.1 % Eos % (Auto) 1.1 % Baso % (Auto) 0.8 % Neut # (Auto) 6.22 (1.40-6.50) K/uL Lymph # (Auto) 1.99 (1.20-3.40) K/uL Granite # (Auto) 0.74 H (0.11-0.59) K/uL Eos # (Auto) 0.10 (0.00-0.50) K/uL Baso # (Auto) 0.07 (0.00-0.20) K/uL Immature Gran # (Auto) 0.06 (0.01-0.20) K/uL Sodium 140 (136-145) mmol/L Potassium 4.2 (3.5-5.1) mmol/L Chloride 102 (98-107) mmol/L Carbon Dioxide 32 (21-32) mmol/L Anion Gap 6 (3-11) BUN 16 (6-23) mg/dl Creatinine 0.68 (0.6-1.2) mg/dl Est Cr Clr Drug Dosing 118.7 ml/min eGFR 127.79 BUN/Creatinine Ratio 23.5 H (10-20) Glucose 86 (70-99(Fasting)) mg/dl Calcium 10.0 (8.6-10.3) mg/dl Total Bilirubin 0.3 (0.2-1.0) mg/dl AST 17 (13-39) U/L ALT 16 (7-52) U/L Alkaline Phosphatase 69 (34-104) U/L Total Protein 7.6 (6.0-8.3) gm/dl Albumin 4.6 (3.4-5.0) gm/dl Globulin 3.0 (2.5-4.0) gm/dl Albumin/Globulin Ratio 1.5 (0.9-2) TSH 0.495 (0.300-4.500) uIu/ml HCG, Qual Negative (Negative) Urine Color Yellow Urine Appearance Cloudy A (Clear) Urine pH 6.0 (4.5-7.5) Ur Specific [place] 1.027 (1.000-1.030) Urine Protein Negative (Negative) Urine Glucose (UA) Negative (Negative) Urine Ketones Negative (Negative) Urine Blood Negative (Negative) Urine Nitrite Negative (Negative) Urine Bilirubin Negative (Negative) Urine Urobilinogen Negative (Negative) Ur Leukocyte Esterase 1+ H (Negative) Urine WBC (Auto) >50 H (0-5) /hpf Urine RBC (Auto) 3-5 H (0-2) /hpf U Hyaline Cast (Auto) 0-2 (0-2) /lpf U Epithel Cells (Auto) 6-10 H (0-2) /hpf Urine Bacteria (Auto) 2+ H (None Seen) Salicylates < 3.0 L (3.0-30) mg/dl Urine Opiates Screen Neg (Neg) Ur Methadone, Qual Neg (Neg) Urine Fentanyl Screen Neg (Neg) Acetaminophen < 3 L (10-30) ug/ml Urine Barbiturates Neg (Neg) Ur Phencyclidine (PCP) Neg (Neg) U Amphetamin/Meth Scrn Pos H (Neg) MDMA (Ecstasy) Screen Pos H (Neg) U Benzodiazepines Scrn Neg (Neg) Ur Cocaine Metabolite Neg (Neg) U Marijuana (THC) Screen Pos H (Neg) Ethyl Alcohol mg/dL < 10.0 (<10.0) mg/dl SARS-CoV-2, RNA, NAAT NEGATIVE (NEGATIVE) Administered Medications Discontinued Medications Cefdinir (Cefdinir 300 Mg Cap) 600 mg PO ONE STA; Protocol Stop: 11/19/24 19:30 Last Admin: 11/19/24 19:38 Dose: 600 mg Documented By: [facility] Discharge Plan Visit Data Chief Complaint: Mental Health Evaluation Stated Complaint: medical clearance FOR [facility] ED Provider: Ananda Duncan Discharge Problem: Depression with suicidal ideation, Generalized anxiety disorder with panic attacks, Urinary tract infection Patient Disposition: Transfer Behavioral Health Fac Forms Stand Alone Forms: My [facility], Suicide Prevention Resources Prescriptions Prescriptions: No Action clonazepam 1 mg tablet 2 mg PO DAILY PRN (Reason: Anxiety) Hold Instructions: Until further instructions by your Psychiatrist Rx Instructions: Panic attacks lamotrigine 100 mg tablet 400 mg PO QPM metformin 500 mg tablet 1,000 mg PO 2XD Referrals Referrals: PCP,NO [Physician] - Discharge Problem: Urinary tract infection Qualifiers: Urinary tract infection type: site unspecified Hematuria presence: without hematuria Qualified Code(s): N39.0 - Urinary tract infection, site not specified
[2024-11-19 19:04] LABS: Basophils # (auto) 0.07 K/uL (0.00-0.20); Basophils % (auto) 0.8 %; Eosinophils % (auto) 1.1 %; Hematocrit (blood only) 39.4 % (37.0-47.0); Hemoglobin 12.9 g/dl (12.0-16.0); Immature Granulocytes # (auto) 0.06 K/uL (0.01-0.20); Immature Granulocytes % (auto) 0.7 %; Lymphocytes # (auto) 1.99 K/uL (1.20-3.40); Lymphocytes % (auto) 21.7 %; Mean Corpuscular Hgb Conc 32.7 g/dL (32.0-36.0); Mean Corpuscular Volume 85.7 fL (80.0-100.0); Mean Platelet Volume 9.3 fL (9.4-12.4); Monocytes # (auto) 0.74 K/uL (0.11-0.59); Monocytes % (auto) 8.1 %; Neutrophils # (auto) 6.22 K/uL (1.40-6.50); Neutrophils % (auto) 67.6 %; Platelet Count 347 K/uL (130-400); RDW Coefficient of Variation 14.8 % (11.5-14.5); RDW Standard Deviation 46.2 fL (36.4-46.3); White Blood Count 9.18 K/ul (4.8-10.8)
[2024-11-19 19:08] LABS: Appearance Urine Cloudy (Clear); Bacteria Urine Automated 2+ (None Seen); Bilirubin Urine Negative (Negative); Blood Urine Negative (Negative); Cast Urine Automated 0-2 /lpf (0-2); Color Urine Yellow; Glucose Urine UA Negative (Negative); Ketones Urine Negative (Negative); Leukocyte Esterase Urine 1+ (Negative); Nitrite Urine Negative (Negative); Protein Urine Negative (Negative); Specific Gravity Urine 1.027 (1.000-1.030); Urobilinogen Urine Negative (Negative); WBC Urine Automated >50 /hpf (0-5)
[2024-11-19 19:23] LABS: Albumin Globulin Ratio 1.5 (0.9-2); Albumin Level 4.6 gm/dl (3.4-5.0); BUN Creatinine Ratio 23.5 (10-20); Bilirubin,Total 0.3 mg/dl (0.2-1.0); Creatinine Clr Calc Pharmacy 118.7 ml/min; Potassium 4.2 mmol/L (3.5-5.1); Total Protein 7.6 gm/dl (6.0-8.3)
[2024-11-19 19:26] LABS: Pregnancy Test, Serum Negative (Negative)
[2024-11-19 19:34] LABS: Acetaminophen < 3 ug/ml (10-30); Salicylate < 3.0 mg/dl (3.0-30)
[2024-11-19 19:37] LABS: Thyroid Stimulating Hormone 0.495 uIu/ml (0.300-4.500)
[2024-11-19] MEDS: CEFDINIR 300 MG CAP PO STA (19:38)
[2024-11-19 19:46] LABS: Amphetamines+Metham, Urine Pos (Neg); Barbiturates, Urine Neg (Neg); Benzodiazepine, Urine Neg (Neg); Cocaine, Urine Neg (Neg); Fentanyl, Urine Neg (Neg); MDMA (Ecstacy), Urine Pos (Neg); Marijuana, Urine Pos (Neg); Methadone, Urine Neg (Neg); Opiate, Urine Neg (Neg); Phencyclidine, Urine Neg (Neg)
[2024-11-19] MEDS ORDERED: ALUMINUM/MAGNESIUM SUSP 30 ML UDC PO PRN (21:30)
[2024-11-19] MEDS ORDERED: BISMUTH SUBSALICYLATE 262 MG CHEW PO PRN (21:30)
[2024-11-19] MEDS ORDERED: SODIUM CHLORIDE 0.65% NA SOLN 45 ML (OCEAN) PRN (21:30)
[2024-11-19] MEDS ORDERED: hydrOXYzine HCl 25 MG TAB PO PRN ×2 (21:30)
[2024-11-19] MEDS ORDERED: MAGNESIUM HYDROXIDE SUSP 30 ML UDC PO PRN (21:30)
[2024-11-19] MEDS ORDERED: ACETAMINOPHEN 325 MG TAB PO PRN (21:30)
--- OUTSIDE RECORDS SUMMARY | 2024-11-19 21:51 | External Medical Summary | Summary of Care ---
Author Name Unknown Organization [facility] Address [address] [place] [address] Phone [phone] Care Team Providers Care Zanjero Name Role Phone Temi Pepe DO Primary Care Provider Reason for Visit * Reason Onset Date Comments Medication Refill 11/08/2024 Encounter Details Date Type Department Care Team (Late st Contact Info) Description 11/08/2024 Refill [facility] [address] [facility] [place] [address] Temi Pepe DO [address] [place] [address] Hyperinsulinemia*; Vitamin D deficiency Allergies Active Allergy Reactions Criticality Noted Date Comments Mirtazapine 06/11/2021 Swelling per psych records from the [facility] 04/2021 documented as of this encounter (statuses as of 11/09/2024) Medications lamoTRIgine 25 MG Oral Tablet Chewable (lamoTRIgine) Take 25 mg by mouth in the morning and 25 mg in the evening. 30 Tablet 1 4 Active clonazePAM 2 MG Oral Tablet (KlonoPIN) Take 1 Tablet by mouth daily as needed for Anxiety. 4 Tablet 4 Active Divalproex Sodium 250 MG Oral Tablet Delayed Release (Depakote DR) Take 1 Tablet by mouth in the morning and 1 Tablet before bedtime. 4 Active Norgestim-Eth Estrad Triphasic 0.18/0.215/0.25 MG-25 MCG Oral Tablet (Ortho Tri-Cyclen Lo) Take 1 Tablet by mouth in the morning. 28 Tablet 11 4 Active metFORMIN HCl 500 MG Oral Tablet (Glucophage)Ind ications:Hyperi nsulinemia Take 1 Tablet by mouth 2 times a day with morning and evening meals. 180 Tablet 5 Active Vitamin D3 50 MCG (1999 UT) Oral Capsule Take 1 Capsule by mouth in the morning. 90 Capsule 3 4 11/08/19 Discontinu ed(Refill) metFORMIN HCl 500 MG Oral Tablet (Glucophage) TAKE 1 TABLET BY MOUTH 2 TIMES A DAY WITH MORNING AND EVENING MEALS 180 Tablet 2 4 11/08/19 Discontinu ed(Refill) metFORMIN HCl 500 MG Oral Tablet (Glucophage)Ind ications:Hyperi nsulinemia Take 1 Tablet by mouth 2 times a day with morning and evening meals. 180 Tablet 5 11/09/19 Discontinu ed(Refill) documented as of this encounter (statuses as of 11/09/2024) Active Problems Problem Noted Date Diagnosed Date Hyperinsulinemia 12/12/2023 Bipolar 2 disorder, major depressive episode 08/2024 Borderline personality disorder 11/10/2023 Eating disorder 01/30/2022 Bipolar disorder 01/30/2022 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 Foreign body alimentary tract 01/30/2022 Palpitations 12/02/2015 Chronic rhinitis 12/16/2010 documented as of this encounter (statuses as of 11/09/2024) Resolved Problems Problem Noted Date Diagnosed Date Resolved Date Prediabetes 12/12/2023 08/16/2024 Fracture of phalanx of left index finger 05/29/2014 06/11/2021 Overview (05/29/2014): distal Finger injury 05/29/2014 06/11/2021 Overview (05/29/2014): left 2nd Open wound of finger 05/29/2014 024 Subungual hematoma of finger of left hand 05/29/2014 06/11/2021 Overview (05/29/2014): 2nd Dysfunction of eustachian tube 12/16/2010 06/11/2021 OTITIS MEDIA,RECURRENT 12/16/201006/11 RECURRENT ACUTE SINUSITIS 12/16/2010 RECURRENT ACUTE PHARYNGITIS 12/16/2010 06/11/2021 documented as of this encounter (statuses as of 11/09/2024) Immunizations Name Administration Dates Next Due DTaP HIB - Dipth/Tet/Acell Pert/HIB 03/31,05/06/2005,2004,12/2003,2004 HIB PRP-T, 4 Dose, PF, IM (H iberix, ActHib) 02/01/2005,2004,2004,12/2003 HPV Vaccine, 4-Valent 10/22/2015 Hepatitis B, 0-19 yrs 2004, 004,2004,01/2004 IPV - Polio Virus Vaccine (Inact) 2008,2004,2004,12/2003 Influenza Vaccine, Live, Int ranasal, Trivalent (Flumist) 08/22/2014 08/22/2015 MMR - Measles/Mumps/Rubella Vaccine 04/15/2009,0 05/06/2005 Meningococcal B, OMV AJD, 2- Dose Series (BEXSERO) 07/06/2018 Meningococcal Conjugate Vacc ine (Menactra/Menveo) 10/22/2015 Pneumococcal Conjugate Vacc, 13 Valent (Prevnar) 05/06/2005,2004,2004,12/2003 Seasonal Influenza Vac., MDV , IM, 0.5 mL (Fluzone) 10/04/2013 Seasonal Influenza Virus Vac cine, Unspecified Formulation 10/13/2018,11/03/2017,10/18/2016,02/2013 Seasonal Influenza, PF, 6 M & above, IM , (FluLaval or Fluzone) 10/19/2021,11/03/2017 11/03/2018 Seasonal Influenza, Quadriva lent, No Preserve, IM 10/18/2016,10/22/2015 TDAP (age 10 and older)(Boostrix) 05/29/2014 Varicella [...] have money to get more. Patient declined Childcare Answer Date Recorded Do you feel overwhelmed with taking care of a child, family member or friend? No 01/21/2024 Does your family need help f inding childcare? (Household - for ages 0-17 years) Not on file 01/21/2024 Clothing Answer Date Recorded Have you been unable to get clothing when it was really needed? Yes 01/21/2024 Is your family able to get c lothes or diapers when needed? (Household - for ages 0-17 years) Not on file 01/21/2024 Personal Safety Answer Date Recorded Do you feel unsafe or have concerns for your saf ety? No 01/21/2024 Do you have concerns for you r family's safety? (Household - for ages 0-17 years) Not on file 01/21/2024 Utilities Answer Date Recorded Do you have trouble paying y our heating, water, or electric bill? Yes 01/21/2024 Is your family able to pay t he heat, water, or electric bill? (Household - for ages 0-17 years) Not on file 01/21/2024 Does your family have access to good internet? (Household - for ages 0-17 years) Not on file 01/21/2024 Employment Status Answer Date Recorded Are you unemployed or without regular income? Ye s 01/21/2024 Does the household have a re gular source of income? (Household - for ages 0-17 years) Not on file 01/21/2024 Social Connections Answer Date Recorded How often do you feel lonely or isolated from th ose around you? Never 01/21/2024 Financial Resource Strain Answer Date R ecorded Do you have any trouble payi ng for your medications, or do you think you might in the future? No 01/21/2024 Does your family have troubl e paying for medicine? (Household - for ages 0-17 years) Not on file 01/21/2024 Transportation Needs Answer Date Record ed READ ONLY Do you have troubl e getting a ride to medical visits or work? Often True 01/21/2024 Does your family have a hard time getting a ride to doctors visits? (Household - for ages 0-17 years) Not on file 01/21/2024 Has lack of transportation k ept you from medical appointments, meetings, work, or from getting things needed for daily living? Check all that apply. (Adult - for ages 18 years and over) Not on file 01/21/2024 Do you (or your family) have trouble finding or paying for a ride (transportation)? (Household - for ages 0-17 years) Not on file 01/21/2024 Housing Stability Answer Date Recorded Do you currently live in a s helter or have no steady place to sleep at night? No 01/21/2024 READ ONLY Do you think you a re at risk of becoming homeless? Yes 01/21/2024 Does your family worry about paying for your home or becoming homeless? (Household - for ages 0-17 years) Not on file 0 01/21/2024 Are you homeless or worried that you might be in the future? (Adult - for ages 18 years and over) Not on file Are you (or your family) jenaro eless or worried that you might be in the future? (Household - for ages 0-17 years) Not on file Food Insecurity Answer Date Recorded Do you need food for this week? Yes 01/21/2024 Are you able to get enough f ood for your family? (Household - for ages 0-17 years) Not on file 01/21/2024 Does your family need food t his week? (Household - for ages 0-17 years) Not on file 01/21/2024 Do you always have enough fo od for your family? (Household - for ages 0-17 years) Not on file 01/21/2024 Comments No Sex and Gender Information Value Date Recorded Sex Assigned at Female 05/12/2023 1:03 PM EDT Legal Sex Female 6:35 AM EST Gender Identity Non Binary 05/12/2023 1:03 PM EDT Sexual Orientation Bisexual 01/21/2024 10 :56 AM EDT documented as of this encounter Miscellaneous Notes * Telephone Encounter - Arthur Bone RP - 11/09/2024 10:01 AM ESTSigned Prescriptions: Disp Refills metFORMIN HCl 500 MG Oral Tablet (Glucopha*180 Ta*0 Sig: Take 1 Tablet by mouth 2 times a day with morning and evening meals.Authorizing Provider: TEMI PEPE User: ARTHUR BONE * Addendum Note - Arthur Bone RPh - 11/09/2024 10:01 AM ESTAddended by: ARTHUR BONE on: 11/09/2024 10:01 AM Modules accepted: Orders * Telephone Encounter - Arthur Bone RP - 11/09/2024 10:01 AM EST Rerouted refills to new pharmacy as requested. Thanks, Arthur Bone Pharm.D. Clinical Pharmacist [facility] ([facility]) [phone] 11/09/2024, 10:01 AM * Addendum Note - Nolvia Abraham heading pinner - 11/09/2024 9:33 AM ESTAddended by: NOLVIA ABRAHAM on: 11/09/2024 09:33 AM Modules accepted: Orders * Telephone Encounter - Nolvia Abraham heading pinner - 11/09/2024 9:32 AM EST Please reroute Rx to [id number] Pending Prescriptions: Disp Refills metFORMIN HCl 500 MG Oral Tablet (Glucoph*180 Ta*0 Sig: Take 1 Tablet by mouth 2 times a day with morning and evening meals. Signed Prescriptions: Disp Refills metFORMIN HCl 500 MG Oral Tablet (Glucopha*180 Ta*0 Sig: Take 1 Tablet by mouth 2 times a day with morning and evening meals. Authorizing Provider: TEMI PEPE Ordering User: JINA WHALEN Last Visit: Visit date not found (in office), Visit date not found (telemedicine) 11/14/2024 If no future appointments scheduled, and last appointment is greater than a year ago, please schedule patient for a follow-up appointment Last date the medication was ordered: 11-08-24 Patient Phone Numbers Labs: Lab Results Component Value Date/Time CREAT 0.8 08/09/2024 11:08 AM CREAT 0.8 01/18/2018 11:05 AM POTASSIUM 4.3 08/09/2024 11:08 AM POTASSIUM 4.6 02/17/2020 09:34 AM POTASSIUM 4.1 01/18/2018 11:05 AM TSH 0.97 08/09/2024 11:08 AM LDL 102 11/29/2023 09:07 AM LDLCALC 117 (A) 01/02/2024 12:00 AM ALT 8 (L) 08/09/2024 11:08 AM HGBA1C 5.9 (H) 11/29/2023 09:07 AM HGBA1C 4.9 02/12/2020 09:47 AM * Telephone Encounter - Jina Whalen RP - 11/08/2024 8:51 PM ESTSigned Prescriptions: Disp Refills metFORMIN HCl 500 MG Oral Tablet (Glucopha*180 Ta*0 Sig: Take 1 Tablet by mouth 2 times a day with morning and evening meals.Authorizing Provider: TEMI PEPE User: JINA WHALEN * Telephone Encounter - Jina Whalen RP - 11/08/2024 8:43 PM EST Patient had outside labs on 01/02/2024 (Lipid) documented in this encounter Plan of Treatment Upcoming Encounters Date Type Department Care Team (Late st Contact Info) Description 11/14/2024 1:00 PM EST [facility] [address] [address] Jony Broderick PA-C [address] [place] [address] 11/30/2024 4:00 PM EST [facility] [address] [address] Nelly Graf PA-C [address] [address] Scheduled Orders Name Type Priority Associated Diagnoses Orde r Schedule LIPID PANEL WITH DIRECT LDL IF TG IS HIGH Lab Routine Hyperinsulinemia Expected: 11/22/2024 (Approximate), Expires: 11/09/2025 HEMOGLOBIN A1C Lab Routine Hyperinsulinemia Expected: 11/22/2024 (Approximate), Expires: 11/09/2025 25-HYDROXY VITAMIN D Lab Routine Hyperinsulinemia Vitamin D deficiency Expected: 11/22/2024 (Approximate), Expires: 11/08/2025 Health Maintenance Due Date Last Done Comments Pneumococcal Vaccine: Pediatrics (0 to 5 Years) and At-Risk Patients (6 to 18 Years and 19+ Years) (1 of 1 - PPSV23) 01/30/2010 05/06/2005, 2004, 2004, Additional history exists HPV (Gardasil) Vaccine (2 - 2-dose series) 04/22/2016 10/22/2015 HIV Screening 01/30/2019 Hepatitis C Screening 01/30/2022 DTap/Tdap Vaccines (7 - Td or Tdap) 05/29/2024 05/29/2014, 04/15/2009, 05/06/2005, Additional history exists COVID-19 Vaccine ( season) 2024 Influenza Vaccine (FLU shot) (#1) 2024 09/25/2022, 10/19/2021, 10/19/2021, Additional history exists Yearly Wellness Visit 11/29/2024 11/29/2023 , 11/26/2022, 10/22/2015 Depression Monitoring 02/05/2025 02/06/2024 Gonorrhea / Chlamydia Screen 08/04/2025 08/04/2024 Hepatitis B Vaccine Completed 2004, 2004, 2004, Additional history exists MENINGOCOCCAL (MENACTRA/MENVEO) Aged Out 10/22/2015 No longer eligible based on patient's age to complete this topic documented as of this encounter Medical Devices Not on filedocumented as of this encounter Visit Diagnoses Diagnosis Hyperinsulinemia- Primary Other specified hypoglycemia Vitamin D deficiency Unspecified vitamin D deficiency documented in this encounter Advance Directives * Full Code (Latest Code Status on File) Date Activated Date Inactivated Comments 01/30/2022 8:12 AM 02/02/2022 11:53 AM This order re flects the patients wishes and were consensually agreed upon. Care Teams Zanjero Relationship Specialty Start Date End Date Temi Pepe DO PCP - General Family Medicine 10/18/22 documented as of this encounter
--- OUTSIDE RECORDS SUMMARY | 2024-11-19 21:51 | External Medical Summary | Summary of Care ---
Author Name Unknown Organization [facility] Address [address] [place] [address] Phone [phone] Care Team Providers Care Rand Tacker Name Role Phone SenthilTemi echevarria Chevy NGUYỄN Primary Care Provider [phone] Reason for Visit * Reason Onset Date Comments Medication Refill 11/08/2024 Encounter Details Date Type Department Care Team (Late st Contact Info) Description [facility] [address] [address] Yovani Cannon MD [address] [place] [address] Allergies Active Allergy Reactions Criticality Noted Date Comments Mirtazapine 06/11/2021 Swelling per psych records from the [facility] 04/2021 documented as of this [...] the morning. 28 Tablet 11 4 Active Vitamin D3 50 MCG (2000 UT) Oral Capsule Take 1 Capsule by mouth in the morning. 90 Capsule 3 5 Active Vitamin D3 50 MCG (2000 UT) Oral Capsule Take 1 Capsule by mouth in the morning. 90 Capsule 3 4 11/08/19 25 Discontinu ed(Refill) metFORMIN HCl 500 MG Oral [...] Telephone Encounter - Temi Pepe DO - 11/09/2024 9:53 AM ESTSigned Prescriptions: Disp Refills Vitamin D3 50 MCG (1999 UT) Oral Capsule 90 Cap*3 Sig: Take 1 Capsule by mouth in the morning. Authorizing Provider: TEMI PEPE * Telephone Encounter - Jina Whalen [facility] - 11/08/2024 8:53 PM ESTPending Prescriptions: Disp Refills Vitamin D3 50 MCG (2000 UT) Oral Capsule 90 Cap*3 Sig: Take 1 Capsule by mouth in the morning. * Telephone Encounter - Jina Whalen RP - 11/08/2024 8:51 PM EST Did you pend patient's preferred pharmacy and medication before forwarding?yes Pharmacy: [id number] Pending Prescriptions: Disp Refills Vitamin D3 50 MCG (1999 UT) Oral Capsule 90 Cap*3 Sig: Take 1 Capsule by mouth in the morning. Last Visit: Visit date not found (in office), Visit date not found (telemedicine) Next Visit: 11/14/2024 If no future appointments scheduled, and last appointment is greater than a year ago, please schedule patient for a follow-up appointment Last date the medication was ordered: 12/12/2023 Is this request for a controlled substance?No Urine Drug Screen: Results for orders placed or performed in visit on 07/28/21 TOXICOLOGY, URINE SCREEN W/ CONFIRMATION Result Value Amphetamines Screen, U Negative Benzodiazepines Screen, U Negative Cannabinoids Screen, U Negative Cocaine Metabolite Screen, U Negative Hydrocodone Screen, U Negative Methadone Metabolite Screen, U Negative Morphine/Codeine Screen, U Negative Oxycodone Screen, U Negative Narrative Cutoff Concentrations: Drug Level Amphetamines 500 ng/mL Benzodiazepines 100 ng/mL Cannabinoids 50 ng/mL Cocaine Metabolite 150 ng/mL Hydrocodone / Hydromorphone 100 ng/mL Methadone Metabolite 100 ng/mL Morphine / Codeine 300 ng/mL Oxycodone / Oxymorphone 100 ng/mL Screening results are presumptive and can only be used for medical purposes. Positive screening results are reflexed to confirmatory testing. Patient Phone Numbers [place] [phone] Labs: Lab Results Component Value Date/Time CREAT [...] 09:07 AM HGBA1C 4.9 02/12/2020 09:47 AM documented in this encounter Plan of Treatment Upcoming Encounters Date Type Department Care Team (Late st Contact Info) Description 11/14/2024 1:00 PM EST Office Visit [facility], [facility] [address] [phone] Jony Broderick PA-C [address] [place] [address] 11/30/2024 4:00 PM EST [facility] Visit [facility] [place] [phone] Nelly Graf PA-C [address] [address] Health Maintenance Due Date Last Done Comments [...] filedocumented as of this encounter Advance Directives * Full Code (Latest Code Status on File) Date Activated Date Inactivated Comments 01/30/2022 8:12 AM 02/02/2022 11:53 AM This order re flects the patients wishes and were consensually agreed upon. Care Teams Rand Tacker Relationship Specialty Start Date End Date Temi Pepe DO PCP - General Family Medicine 10/18/22 documented as of this encounter
--- OUTSIDE RECORDS SUMMARY | 2024-11-19 21:52 | External Medical Summary | Summary of Care ---
Author Name Unknown Organization [facility] Address [address] [place] [address] Phone [phone] Care Team Providers Care Security Officer Supervisor Name Role Phone Temi Pepe DO Primary Care Provider Reason for Visit * Reason Onset Date Comments Medication Refill 11/08/2024 Encounter Details Date Type Department Care Team (Late st Contact Info) Description 11/08/2024 Refill [facility] [address] [facility] [place] [address] Temi Pepe DO [address] [facility] [address] Hyperinsulinemia*; Vitamin D deficiency Allergies Active Allergy Reactions Criticality Noted Date Comments Mirtazapine 06/11/2021 Swelling per psych records from the [facility] 04/2021 documented as of this encounter (statuses as of 11/08/2024) Medications lamoTRIgine 25 MG Oral Tablet Chewable (lamoTRIgine) Take 25 mg by mouth in the morning and 25 mg in the evening. 30 Tablet 1 4 Active clonazePAM 2 MG Oral Tablet (KlonoPIN) Take 1 Tablet by mouth daily as needed for Anxiety. 4 Tablet 4 Active Vitamin D3 50 MCG (2000 UT) Oral Capsule Take 1 Capsule by mouth in the morning. 90 Capsule 3 4 Active Divalproex Sodium 250 MG Oral [...] and evening meals. 180 Tablet 5 Active metFORMIN HCl 500 MG Oral Tablet (Glucophage) TAKE 1 TABLET BY MOUTH 2 TIMES A DAY WITH MORNING AND EVENING MEALS 180 Tablet 2 4 11/08/19 25 Discontinu ed(Refill) documented as of this encounter (statuses as of 11/08/2024) Active Problems Problem Noted Date Diagnosed Date Hyperinsulinemia 12/12/2023 Bipolar 2 disorder, major depressive episode 08/2024 Borderline personality disorder 11/10/2023 Eating disorder 01/30/2022 Bipolar disorder 01/30/2022 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 Foreign body alimentary tract 01/30/2022 Palpitations 12/02/2015 Chronic rhinitis 12/16/2010 documented as of this encounter (statuses as of 11/08/2024) Resolved Problems Problem Noted Date Diagnosed Date [...] as of this encounter (statuses as of 11/08/2024) Immunizations Name Administration Dates Next Due DTaP [...] encounter Miscellaneous Notes * Telephone Encounter - Cecelia Whalen RPh - 11/08/2024 8:51 PM ESTSigned Prescriptions: Disp Refills metFORMIN HCl 500 MG Oral Tablet (Glucopha*180 Ta*0 Sig: Take 1 Tablet by mouth 2 times a day with morning and evening meals.Authorizing Provider: ETMI PEPE User: CECELIA WHALEN * Telephone Encounter - Cecelia Whalen RPh - 11/08/2024 8:43 PM EST Patient had outside labs on 01/02/2024 (Lipid) documented in this encounter Plan of Treatment Upcoming Encounters Date Type Department Care Team (Late st Contact Info) Description 11/14/2024 1:00 PM [place] [address] Jony Broderick PA-C [address] [place], [place] [address] [address] 11/30/2024 4:00 PM EST Office Visit [facility] [address] [phone] Nelyl Graf PA-C [address] [address] Scheduled Orders Name Type Priority Associated Diagnoses [...] and were consensually agreed upon. Care Teams Security Officer Supervisor Relationship Specialty Start Date End Date Temi Pepe DO PCP - General Family Medicine 10/18/22 documented as of this encounter
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
--- OUTSIDE RECORDS SUMMARY | 2024-11-19 21:52 | External Medical Summary | Summary of Care ---
Author Name Unknown Organization [facility] Address [address] [place] [address] Phone [phone] Care Team Providers Care Agile Test Lead Name Role Phone Temi Pepe DO Primary Care Provider Reason for Visit * Reason Onset Date Comments Medication Refill 11/08/2024 Encounter Details Date Type Department Care Team (Late st Contact Info) Description 11/08/[address] [facility] [address] [facility] [place] [address] Temi Pepe DO [address] [facility] [place] [address] Hyperinsulinemia*; Vitamin D deficiency Allergies Active Allergy Reactions Criticality Noted Date Comments Mirtazapine 06/11/2021 Swelling per psych records from the [facility] 04/2021 documented as of this encounter (statuses [...] as of this encounter Miscellaneous Notes * Addendum Note - Nolvia Abraham PHARM Tech - 11/09/2024 9:33 AM ESTAddended by: NOLVIA ABRAHAM on: 11/09/2024 09:33 AM Modules accepted: Orders * Telephone Encounter - Nolvia Abraham PHARM Tech - 11/09/2024 9:32 AM EST Please reroute Rx to [id number] Pending Prescriptions: Disp Refills metFORMIN HCl [...] WHALEN * Telephone Encounter - Jina Whalen RPh - 11/08/2024 8:43 PM EST Patient had outside labs on 01/02/2024 (Lipid) documented in this encounter Plan of Treatment Upcoming Encounters Date Type Department Care Team (Late st Contact Info) Description 11/14/2024 1:00 PM [place] [phone] Jony Broderick PA-C [address] [place] [phone] 11/30/2024 4:00 PM EST Office Visit [facility] [address] [phone] Nelly Graf PA-C [address] [phone] Scheduled Orders Name Type Priority Associated Diagnoses [...] and were consensually agreed upon. Care Teams Agile Test Lead Relationship Specialty Start Date End Date Temi Pepe DO PCP - General Family Medicine 10/18/22 documented as of this encounter
--- OUTSIDE RECORDS SUMMARY | 2024-11-19 21:52 | External Medical Summary | Summary of Care ---
Author Name Unknown Organization [facility] Address [address] [place] [address] Phone [phone] Care Team Providers Care Cell Tender Helper Name Role Phone Yanna Borja DO Primary Care Provider Reason for Visit * Reason Onset Date Comments FYI 08/07/2024 Encounter Details Date Type Department Care Team (Late st Contact Info) Description 08/07/2024 Telephone [facility] DEPT CLOSED - 10/18/24 [address] [place] [phone] Yanna Borja DO [address] [facility] [place] [address] FYI Allergies Active Allergy Reactions Criticality Noted Date Comments Mirtazapine 06/11/2021 Swelling per psych records from the [facility] 04/2021 documented as of this encounter (statuses as of 11/06/2024) Medications lamoTRIgine 25 MG Oral Tablet Chewable [...] and 1 Tablet before bedtime. 07/24/2024 Active documented as of this encounter (statuses as of 11/06/2024) Active Problems Problem Noted Date Diagnosed Date Hyperinsulinemia 12/12/2023 Bipolar 2 disorder, major depressive episode 08/2024 Borderline personality disorder 11/10/2023 Eating disorder 01/30/2022 Bipolar disorder 01/30/2022 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 Foreign body alimentary tract 01/30/2022 Palpitations 12/02/2015 Chronic rhinitis 12/16/2010 documented as of this encounter (statuses as of 11/06/2024) Resolved Problems Problem Noted Date Diagnosed Date [...] as of this encounter (statuses as of 11/06/2024) Immunizations Name Administration Dates Next Due DTaP HIB - Dipth/Tet/Acell Pert/HIB 06/03/2009,05/06/2005,2004,12/2003,2004 HIB PRP-T, 4 Dose, PF, IM (H [...] encounter Miscellaneous Notes * Telephone Encounter - Narinder Pierre OSA - 08/07/2024 1:39 PM EDT Pt running late ( ) documented in this encounter Plan of Treatment Upcoming Encounters Date Type Department Care Team (Late st Contact Info) Description 11/30/2024 4:00 PM EST [facility] [address] [facility] [address] [phone] Nelly Graf PA-C [address] [phone] Health Maintenance Due Date Last Done Comments [...] and were consensually agreed upon. Care Teams Cell Tender Helper Relationship Specialty Start Date End Date Yanna Borja DO PCP - General Family Medicine 10/18/22 documented as of this encounter
[2024-11-19] MEDS ORDERED: OLANZapine 5 MG TABLET PO PRN (22:01)
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
[2024-11-20] MEDS ORDERED: NICOTINE 14 MG/24 HR PATCH TD SCH (09:00)
[2024-11-20] MEDS: NICOTINE POLACRILEX 2 MG GUM MT PRN (09:51)
[2024-11-20] MEDS: NICOTINE 14 MG/24 HR PATCH TD SCH (10:27)
[2024-11-20] MEDS: NALTREXONE HCL 50 MG TAB PO SCH (17:21)
[2024-11-20] MEDS: metFORMIN HCL 500 MG TAB PO SCH (17:21)
[2024-11-20] MEDS: lamoTRIgine 25 MG TAB PO SCH (20:29)
[2024-11-20] MEDS: fluvoxaMINE MALEATE 50 MG TAB PO SCH (20:29)
[2024-11-20] MEDS: SULFAMETHOXAZOLE/TRIMETHOPRIM DS 800/160MG TAB PO SCH (20:29)
--- NOTE | 2024-11-21 08:55 | Psychiatric Progress Note ---
Date of Service November 21, 2024 Impression / Recommendations Impression RAMANDEEP JEFFERY is a 19-year-old individual (prefers she/they pronouns) who currently lives at [facility] the [facility], has a history of BPAD typically mixed episodes, DID, BPD, PTSD, anxiety, and was admitted on 11/19/24 21:30 on a 201 voluntary commitment for worsening depression and SI with possible plans. Diagnostically consistent with unspecified depression with differential including bipolar affective disorder current depressive episode or mixed episode vs acute exacerbation of BPD vs major depressive disorder vs persistent depressive disorder with likely co-occurring dissociative identity disorder with depersonalization and derealization vs substance-induced mood/dissociative symptoms as well as PTSD and anxiety by history. A: Ongoing mood lability, dissociative symptoms. Reviewed symptom question naires-consistent with diagnoses of BPAD and BPD. DSS-B with highest scores for things feeling unreal, moments of losing control, feeling like in a movie, not paying attention, reacted like in the past, and losing track of time. Y-BOCS inconsistent with OCD but with some obsessions and compulsions which could be part of anxiety/PTSD. Tolerating medication adjustments so far, ongoing periods of emotional dysregulation for which she feels Klonopin has been the only medication that helps. Reviewed concerns given potential to worsen dissociation and addiction potential given hx of illicit substance use. Discussed medication treatment options in detail for anxiety/panic attacks/emotional dysregulation. Discussed risks, benefits and alternatives. Patient would like to start and consented to Klonopin as prn option for severe panic attacks and given possibility for some hypomania contributing to emotional lability/psychomotor agitation. Reviewed side effects including but not limited to: addition, need to avoid driving/operating machinery, potential for worsening dissociation, falls, confusion. MNPR-nonbinary Overall, I spent a total of 50 minutes on this case including meeting with the patient, reviewing the chart, nursing report, multidisciplinary team meeting, orders, and documentation. (1) Depression with suicidal ideation: (2) Bipolar disorder: (3) Dissociative identity disorder: (4) Borderline personality disorder: (5) Generalized anxiety disorder with panic attacks: (6) Post traumatic stress disorder (PTSD): (7) Marijuana use: (8) Tobacco use: (9) Urinary tract infection: (10) Psychosocial stressors: Plan 11/21/2024: -Klonopin 1mg daily prn for panic attack -Continue current medications and tx plan -Focus on finding outpatient therapist to work on DBT skills and DID/trauma ideally with trauma focused CBT 11/20/2024: The patient was admitted to the [facility] ([facility] mental health unit) on q15 min checks (behavioral with suicide precautions) for safety. The patient will participate in group, recreational, and milieu therapies and will be offered additional individual and family sessions as clinically appropriate. -Medications: * lamictal 25mg HS * Luvox 50mg HS * naltrexone 25mg BID * Bactrim 160/800mg BID for 3 days for UTI -Questionnaires: * Lynsey BPD * Mood Disorder questionnaire * YBOCS * Dissociative symptoms scale Inventory Assets Strengths: outpatient providers, willing to get treatment Needs: safety and stabilization, medication adjustment, additional coping skills, increased outpatient services Suicide Risk Level Suicide Risk Level: Moderate (q15 min suicide checks) (hopefulness, depression with SI but lessening a bit and feels safe in the hospital and feels able to ask for support if needed) Suicide Risk Level Comments: Risk Factors Assessment Male: No : Yes Do You Have Access To A Gun?: No Mental Health Diagnoses: Yes Substance Use Disorders: Yes Previous Attempt: Yes Previous Psychiatric Hospitalization: Yes Hopelessness: Yes Protective Factors Assessment : No Employed: No Stable Relationships: No Supportive Family: No Interval History Identifying Information POLLO JEFFERY is a 19-year-old individual (prefers she/they pronouns) who currently lives at [facility] the [facility], has a history of BPAD typically mixed episodes, DID, BPD, PTSD, anxiety, and was admitted on 11/19/24 21:30 on a 201 voluntary commitment for worsening depression and SI with possible plans. Chief Complaint "I woke up really really anxious". Review of Systems Sleep Information Total Hours of Sleep: 6.5 Meal Information Percent Meal Consumed - Breakfast: 75 Percent Meal Consumed - Lunch: 100 Percent Meal Consumed - Dinner: 0 Subjective Subjective Patient was seen & assessed and interval progress reviewed with treatment team. Rated their mood 2 and numb last evening. Spoke with mother on the phone which was emotional. This morning required prn dose of ativan after escalating anxiety and agitation. Today reports that "I'm fronting a different alter today" and speaks to feeling that she has "conflicting alters" present in her mind. One of these alters is high energy and happier so she feels her SI has lessened some. Continues to feel very anxious, feels that ativan was not helpful. Has only ever found Klonopin beneficial in the past. Discussed my concern this could worsen dissociation and was ill-advised given her recent substance use. She continues to feel her substance use was one time and a mistake and doesn't plan to use any non- prescribed substances again. She understands Klonopin can be used in the inpatient setting for acute panic attack but is unlikely to be prescribed on discharge which she is agreeable to. She prefers not to try an alternative safer option which could be prescribed on discharge. She feels Vistaril is ineffective. Feels that her alter switches are like "the trance just came on". Still feels "numb" at times. Tolerating medication changes so far, some GI discomfort but still eating. Reviewed history of purging, none in many years, and hx of restriction/anorexia but she feels this is well controlled now. At times certain alters struggle more with wanting to restrict but she feels past intensive treatment has helped with her eating disorder. Physical Exam Psychiatric Orientation: alert and oriented x 3 Apperance: appropriately dressed and appropriately groomed Eye Contact: good eye contact Motor Behavior: + psychomotor agitation Speech: normal rate/rhythm/volume of speech Affect: + depressed affect, + anxious affect, + labile affect and + irritable af fect Mood: + depressed mood, + anxious mood and + irritable mood Thought Process: + circumstantial thought process Thought Content: + preoccupation Suicidal Thoughts: denies suicidal plan and denies suicidal intent; + reports suicidal thoughts (lessening today) Homicidal Thoughts: denies homicidal thoughts Hallucinations: no auditory hallucinations and no visual hallucinations Cognition: recent memory grossly intact, remote memory grossly intact, attention grossly intact and language grossly intact Estimated Intelligence: consistent with education level Insight: + limited insight Judgment: + limited judgement Vital Signs (Past 24 Hours) Last Vital Signs Temp 36.4 C 11/21/24 06:00 Pulse 81 11/21/24 06:14 Resp 16 11/21/24 06:00 BP 109/67 11/21/24 06:14 Pulse Ox 98 11/19/24 22:06 O2 Del Method Room Air 11/19/24 22:06 Results & Data ([facility]) Current Inpatient Medications Current Inpatient Medications: Current Inpatient Medications Acetaminophen (Acetaminophen 325 Mg Tab) 650 mg PO Q4H PRN PRN Reason: Headache or Minor Fever Stop: 12/19/24 21:29 Al Hydrox/Mg Hydrox/Simethicone (Aluminum/Magnesium Susp 30 Ml Udc) 30 ml PO Q4H PRN PRN Reason: GI Upset Stop: 12/19/24 21:29 Bismuth Subsalicylate (Bismuth Subsalicylate 262 Mg Chew) 2 tab PO Q30M PRN PRN Reason: Loose Stool/Diarrhea Stop: 12/19/24 21:29 Fluvoxamine Maleate (Fluvoxamine Maleate 50 Mg Tab) 50 mg PO HS [facility] Stop: 12/20/24 21:59 Last Admin: 11/20/24 20:29 Dose: 50 mg Hydroxyzine HCl (Hydroxyzine Hcl 25 Mg Tab) 50 mg PO HSZ PRN PRN Reason: Insomnia Stop: 12/19/24 21:29 Hydroxyzine HCl (Hydroxyzine Hcl 25 Mg Tab) 25 mg PO Q4H PRN PRN Reason: Anxiety Stop: 12/19/24 21:29 Lamotrigine (Lamotrigine 25 Mg Tab) 25 mg PO [facility]; Protocol Stop: 12/20/24 21:59 Last Admin: 11/20/24 20:29 Dose: 25 mg Magnesium Hydroxide (Magnesium Hydroxide Susp 30 Ml Udc) 30 ml PO DAILY PRN PRN Reason: Constipation Stop: 12/19/24 21:29 Metformin HCl (Metformin Hcl 500 Mg Tab) 500 mg PO BIDM [facility] Stop: 12/20/24 17:44 Last Admin: 11/21/24 08:46 Dose: 500 mg Miscellaneous (Remove Nicoderm Patch) 1 each N/A DAILY@0859 [facility] Stop: 12/20/24 08:58 Last Admin: 11/21/24 08:46 Dose: 1 each Naltrexone HCl (Naltrexone Hcl 50 Mg Tab) 25 mg PO BIDM [facility] Stop: 12/20/24 17:44 Last Admin: 11/21/24 08:46 Dose: 25 mg Nicotine (Nicotine 14 Mg/24 Hr Patch) 1 patch TD QAM [facility] Stop: 12/20/24 09:44 Last Admin: 11/21/24 08:46 Dose: 1 patch Nicotine Polacrilex (Nicotine Polacrilex 2 Mg Gum) 2 piece MT PRN PRN PRN Reason: Nicotine Withdrawal Symptoms Stop: 12/19/24 21:29 Last Admin: 11/21/24 08:51 Dose: 2 piece Olanzapine (Olanzapine 5 Mg Tablet) 5 mg PO BID PRN PRN Reason: Agitation Stop: 12/20/24 08:59 Sodium Chloride (Sodium Chloride 0.65% Na Soln 45 Ml ([place])) 1 - 2 sprays NA PRN PRN PRN Reason: Nasal Dryness/Congestion Stop: 12/19/24 21:29 Trimethoprim/Sulfamethoxazole (Sulfamethoxazole/Trimethoprim Ds 800/160mg Tab) 1 tab PO Q12 JULIANNA Stop: 11/23/24 09:01 Last Admin: 11/21/24 08:47 Dose: 1 tab Mental Health & Subst Abuse Tx Psychiatrist Name of Psychiatrist: Owen Andino Psychiatrist's Therapist Name of Therapist: Lorri Dent Wash Tank Tender Name of Wash Tank Tender: Rachelle Phone Number for Wash Tank Tender: [phone] Post Discharge Appointments Primary Care Physician Name Of Family Doctor/PCP: Dr Yanna Borja (9) Urinary tract infection Hematuria presence: without hematuria Urinary tract infection type: site unspecified Qualified Code(s): N39.0 - Urinary tract infection, site not specified
[2024-11-21] MEDS ORDERED: LORazepam 1 MG TAB PO PRN (10:56)
[2024-11-21] MEDS: LORazepam 1 MG TAB ONE (11:01)
[2024-11-21] MEDS: ONDANSETRON 2 MG OD TAB PO PRN (22:21)
--- NOTE | 2024-11-22 08:39 | Psychiatric Progress Note ---
Date of Service November 22, 2024 Impression / Recommendations Impression RAMANDEEP JEFFERY is a 19-year-old individual (prefers she/they pronouns) who currently lives at [facility] the [facility], has a history of BPAD typically mixed episodes, DID, BPD, PTSD, anxiety, and was admitted on 11/19/24 21:30 on a 201 voluntary commitment for worsening depression and SI with possible plans. Diagnostically consistent with unspecified depression with differential including bipolar affective disorder current depressive episode or mixed episode vs acute exacerbation of BPD vs major depressive disorder vs persistent depressive disorder with likely co-occurring dissociative identity disorder with depersonalization and derealization vs substance-induced mood/dissociative symptoms as well as PTSD and anxiety by history. A: Mood improving but reports increasing anxiety and sense of physical res tlessness today. She's unclear if this is due to an alter as part of her DID or due to possible medication side effect. Discussed possibility of akathisia and she would like to start propranolol as off-label use for possible akathisia from possible SSRI initiation vs physical manifestation of anxiety.Reviewed side effects including but not limited to: slow HR, low BP, syncope. She would like to discontinue Luvox due to concern it's contributing to physical and mental anxiety. She wants to continue with lamictal and naltrexone. GI side effects could be from Luvox or naltrexone or UTI antibiotic course. MNPR-nonbinary Overall, I spent a total of 40 minutes on this case including meeting with the patient, reviewing the chart, nursing report, multidisciplinary team meeting, orders, and documentation. (1) Depression with suicidal ideation: (2) Bipolar disorder: (3) Dissociative identity disorder: (4) Borderline personality disorder: (5) Generalized anxiety disorder with panic attacks: (6) Post traumatic stress disorder (PTSD): (7) Marijuana use: (8) Tobacco use: (9) Urinary tract infection: (10) Psychosocial stressors: Plan 11/22/2024: -Start propranolol 10mg BID -Discontinue Luvox -Referring for outpatient crisis peer support for additional outpatient resources 11/21/2024: -Klonopin 1mg daily prn for panic attack -Continue current medications and tx plan -Focus on finding outpatient therapist to work on DBT skills and DID/trauma ideally with trauma focused CBT 11/20/2024: The patient was admitted to the [facility] ([facility] mental health unit) on q15 min checks (behavioral with suicide precautions) for safety. The patient will participate in group, recreational, and milieu therapies and will be off ered additional individual and family sessions as clinically appropriate. -Medications: * lamictal 25mg HS * Luvox 50mg HS * naltrexone 25mg BID * Bactrim 160/800mg BID for 3 days for UTI -Questionnaires: * Lynsey BPD * Mood Disorder questionnaire * YBOCS * Dissociative symptoms scale Inventory Assets Strengths: outpatient providers, willing to get treatment Needs: safety and stabilization, medication adjustment, additional coping skills, increased outpatient services Suicide Risk Level Suicide Risk Level: Moderate (q15 min suicide checks) (hopefulness, depression with SI but lessening a bit and feels safe in the hospital and feels able to ask for support if needed) Suicide Risk Level Comments: Risk Factors Assessment Male: No : Yes Do You Have Access To A Gun?: No Mental Health Diagnoses: Yes Substance Use Disorders: Yes Previous Attempt: Yes Previous Psychiatric Hospitalization: Yes Hopelessness: Yes Protective Factors Assessment : No Employed: No Stable Relationships: No Supportive Family: No Interval History Identifying Information POLLO JEFFERY is a 19-year-old individual (prefers she/they pronouns) who currently lives at [facility] the [facility], has a history of BPAD typically mixed episodes, DID, BPD, PTSD, anxiety, and was admitted on 11/19/24 21:30 on a 201 voluntary commitment for worsening depression and SI with possible plans. Chief Complaint "I'm really anxious like my head and body are disconnected". Review of Systems Sleep Information Total Hours of Sleep: 6 Meal Information Percent Meal Consumed - Breakfast: 50 Percent Meal Consumed - Lunch: 90 Percent Meal Consumed - Dinner: 100 Subjective Subjective Patient was seen & assessed and interval progress reviewed with nursing and social work. Had a good evening, attended groups, felt more hopeful, did laundry. This morning felt very anxious and having nausea. Found prn zofran helpful. Feels her body is restless but her mind feels anxious but also sometimes numb. Only had one brief moment of SI states "it was briefly but didn't stay long". She does though also feel like something is helping with her DID symptoms because today woke up with "more clarity of mind but maybe co- fronting a alter". She suspects one of the medication changes might be causing anxiety as she feels she wasn't dealing with this prior to admission. Utilized prn Klonopin this morning with some benefit. Physical Exam Psychiatric Orientation: alert and oriented x 3 Apperance: appropriately dressed and appropriately groomed Eye Contact: good eye contact Motor Behavior: no abnormal motor movements Speech: normal rate/rhythm/volume of speech Affect: + anxious affect Mood: + depressed mood and + anxious mood Thought Process: + circumstantial thought process Thought Content: reality based without delusions Suicidal Thoughts: denies suicidal plan and denies suicidal intent; + reports suicidal thoughts (only one brief fleeting thought) Homicidal Thoughts: denies homicidal thoughts Hallucinations: no auditory hallucinations and no visual hallucinations Cognition: recent memory grossly intact, remote memory grossly intact, attention grossly intact and language grossly intact Estimated Intelligence: consistent with education level Insight: + limited insight Judgment: + limited judgement Vital Signs (Past 24 Hours) Last Vital Signs Temp 36.4 C L 11/22/24 06:00 Pulse 97 H 11/22/24 06:24 Resp 16 11/22/24 06:00 BP 107/68 11/22/24 06:24 Pulse Ox 98 11/19/24 22:06 O2 Del Method Room Air 11/19/24 22:06 Results & Data ([facility]) Current Inpatient Medications Current Inpatient Medications: Current Inpatient Medications Acetaminophen (Acetaminophen 325 Mg Tab) 650 mg PO Q4H PRN PRN Reason: Headache or Minor Fever Stop: 12/19/24 21:29 Al Hydrox/Mg Hydrox/Simethicone (Aluminum/Magnesium Susp 30 Ml Udc) 30 ml PO Q4H PRN PRN Reason: GI Upset Stop: 12/19/24 21:29 Bismuth Subsalicylate (Bismuth Subsalicylate 262 Mg Chew) 2 tab PO Q30M PRN PRN Reason: Loose Stool/Diarrhea Stop: 12/19/24 21:29 Clonazepam (Clonazepam 1 Mg Tab) 1 mg PO DAILY PRN PRN Reason: panic attack Stop: 12/21/24 15:13 Fluvoxamine Maleate (Fluvoxamine Maleate 50 Mg Tab) 50 mg PO HS JULIANNA Stop: 12/20/24 21:59 Last Admin: 11/21/24 21:13 Dose: 50 mg Hydroxyzine HCl (Hydroxyzine Hcl 25 Mg Tab) 50 mg PO HSZ PRN PRN Reason: Insomnia Stop: 12/19/24 21:29 Hydroxyzine HCl (Hydroxyzine Hcl 25 Mg Tab) 25 mg PO Q4H PRN PRN Reason: Anxiety Stop: 12/19/24 21:29 Lamotrigine (Lamotrigine 25 Mg Tab) 25 mg PO HS [facility]; Protocol Stop: 12/20/24 21:59 Last Admin: 11/21/24 21:13 Dose: 25 mg Magnesium Hydroxide (Magnesium Hydroxide Susp 30 Ml Udc) 30 ml PO DAILY PRN PRN Reason: Constipation Stop: 12/19/24 21:29 Metformin HCl (Metformin Hcl 500 Mg Tab) 500 mg PO BIDM [facility] Stop: 12/20/24 17:44 Last Admin: 11/21/24 17:31 Dose: 500 mg Miscellaneous (Remove Nicoderm Patch) 1 each N/A DAILY@0859 [facility] Stop: 12/20/24 08:58 Last Admin: 11/21/24 08:46 Dose: 1 each Naltrexone HCl (Nalt[facility]one Hcl 50 Mg Tab) [facility] Stop: 12/20/24 17:44 Last Admin: 11/21/24 17:31 Dose: 25 mg Nicotine (Nicotine 14 Mg/24 Hr Patch) 1 patch TD [facility] Stop: 12/20/24 09:44 Last Admin: 11/21/24 08:46 Dose: 1 patch Nicotine Polacrilex (Nicotine Polacrilex 2 Mg Gum) 2 piece MT PRN PRN PRN Reason: Nicotine Withdrawal Symptoms Stop: 12/19/24 21:29 Last Admin: 11/21/24 18:31 Dose: 2 piece Olanzapine (Olanzapine 5 Mg Tablet) 5 mg PO BID PRN PRN Reason: Agitation Stop: 12/20/24 08:59 Ondansetron HCl (Ondansetron 2 Mg Od Tab) 2 mg PO DAILY PRN PRN Reason: Nausea Stop: 12/21/24 22:10 Last Admin: 11/21/24 22:21 Dose: 2 mg Sodium Chloride (Sodium Chloride 0.65% Na Soln 45 Ml ([place])) 1 - 2 sprays NA PRN PRN PRN Reason: Nasal Dryness/Congestion Stop: 12/19/24 21:29 Trimethoprim/Sulfamethoxazole (Sulfamethoxazole/Trimethoprim Ds 800/160mg Tab) 1 tab PO Q12 JULIANNA Stop: 11/23/24 09:01 Last Admin: 11/21/24 21:13 Dose: 1 tab Mental Health & Subst Abuse Tx Psychiatrist Name of Psychiatrist: Owen Andino Psychiatrist's Date Of Appointment With Psychiatric Provider: 12/04/24 Time of Appointment with Psychiatrist: 11:20AM Psychiatric Appointment Comment: In person - [address] [place] [place] [address] Therapist Name of Therapist: Lilo King Therapist's Date of Therapist Appointment: 11/29/24 Time of Therapist Appointment: 11AM Therapy Appointment Comment: Telehealth Labor Relations Analyst Name of Labor Relations Analyst: Rachelle Phone Number for Labor Relations Analyst: [phone] Post Discharge Appointments Primary Care Physician Name Of Family Doctor/PCP: Dr Yanna Borja Contact Information Discharge Discharge Address: Out of the [address] [place] [address] (9) Urinary tract infection Hematuria presence: without hematuria Urinary tract infection type: site unspecified Qualified Code(s): N39.0 - Urinary tract infection, site not specified
[2024-11-22] MEDS: clonazePAM 1 MG TAB PO PRN (10:03)
[2024-11-22] MEDS: PROPRANOLOL HCL 10 MG TAB PO SCH (11:44)
[2024-11-22 20:29] VITALS: O2SAT 96
[2024-11-23 06:39] VITALS: BP 104/68; RESP 16; TEMP 98.1
--- NOTE | 2024-11-23 08:48 | Psychiatric Progress Note ---
Date of Service November 23, 2024 Impression / Recommendations Impression RAMANDEEP JEFFERY is a 19-year-old individual (prefers she/they pronouns) who currently lives at [facility] longterm, has a history of BPAD typically mixed episodes, DID, BPD, PTSD, anxiety, and was admitted on 11/19/24 21:30 on a 201 voluntary commitment for worsening depression and SI with possible plans. Diagnostically consistent with unspecified depression with differential including bipolar affective disorder current depressive episode or mixed episode vs acute exacerbation of BPD vs major depressive disorder vs persistent depressive disorder with likely co-occurring dissociative identity disorder with depersonalization and derealization vs substance-induced mood/dissociative symptoms as well as PTSD and anxiety by history. A: Mood improving but reports increasing anxiety and sense of physical res tlessness today. She's unclear if this is due to an alter as part of her DID or due to possible medication side effect. Discussed possibility of akathisia and she would like to start propranolol as off-label use for possible akathisia from possible SSRI initiation vs physical manifestation of anxiety.Reviewed side effects including but not limited to: slow HR, low BP, syncope. She would like to discontinue Luvox due to concern it's contributing to physical and mental anxiety. She wants to continue with lamictal and naltrexone. GI side effects could be from Luvox or naltrexone or UTI antibiotic course. MNPR-nonbinary Overall, I spent a total of 40 minutes on this case including meeting with the patient, reviewing the chart, nursing report, multidisciplinary team meeting, orders, and documentation. (1) Depression with suicidal ideation: (2) Bipolar disorder: (3) Dissociative identity disorder: (4) Borderline personality disorder: (5) Generalized anxiety disorder with panic attacks: (6) Post traumatic stress disorder (PTSD): (7) Marijuana use: (8) Tobacco use: (9) Urinary tract infection: (10) Psychosocial stressors: Plan 11/22/2024: -Start propranolol 10mg BID -Discontinue Luvox -Referring for outpatient crisis peer support for additional outpatient resources 11/21/2024: -Klonopin 1mg daily prn for panic attack -Continue current medications and tx plan -Focus on finding outpatient therapist to work on DBT skills and DID/trauma ideally with trauma focused CBT 11/20/2024: The patient was admitted to the [facility] ([facility] mental health unit) on q15 min checks (behavioral with suicide precautions) for safety. The patient will participate in group, recreational, and milieu therapies and will be off ered additional individual and family sessions as clinically appropriate. -Medications: * lamictal 25mg HS * Luvox 50mg HS * naltrexone 25mg BID * Bactrim 160/800mg BID for 3 days for UTI -Questionnaires: * Lynsey BPD * Mood Disorder questionnaire * YBOCS * Dissociative symptoms scale Inventory Assets Strengths: outpatient providers, willing to get treatment Needs: safety and stabilization, medication adjustment, additional coping skills, increased outpatient services Suicide Risk Level Suicide Risk Level: Moderate (q15 min suicide checks) (hopefulness, depression with SI but lessening a bit and feels safe in the hospital and feels able to ask for support if needed) Suicide Risk Level Comments: Risk Factors Assessment Male: No : Yes Do You Have Access To A Gun?: No Mental Health Diagnoses: Yes Substance Use Disorders: Yes Previous Attempt: Yes Previous Psychiatric Hospitalization: Yes Hopelessness: Yes Protective Factors Assessment : No Employed: No Stable Relationships: No Supportive Family: No Interval History Identifying Information POLLO JEFFERY is a 19-year-old individual (prefers she/they pronouns) who currently lives at [facility] longterm, has a history of BPAD typically mixed episodes, DID, BPD, PTSD, anxiety, and was admitted on 11/19/24 21:30 on a 201 voluntary commitment for worsening depression and SI with possible plans. Chief Complaint "[]". Review of Systems Sleep Information Total Hours of Sleep: 9.25 Meal Information Percent Meal Consumed - Breakfast: 25 Percent Meal Consumed - Lunch: 75 Percent Meal Consumed - Dinner: 100 Subjective Subjective Patient was seen & assessed and interval progress reviewed with treatment team. Attending groups. Slept well. Declined support meeting. Physical Exam Vital Signs (Past 24 Hours) Last Vital Signs Temp 36.7 C 11/23/24 06:37 Pulse 71 11/23/24 06:38 Resp 16 11/23/24 06:37 BP 104/68 11/23/24 06:38 Pulse Ox 96 11/22/24 20:28 O2 Del Method Room Air 11/22/24 20:28 Results & Data ([facility]) Current Inpatient Medications Current Inpatient Medications: Current Inpatient Medications Acetaminophen (Acetaminophen 325 Mg Tab) 650 mg PO Q4H PRN PRN Reason: Headache or Minor Fever Stop: 12/19/24 21:29 Al Hydrox/Mg Hydrox/Simethicone (Aluminum/Magnesium Susp 30 Ml Udc) 30 ml PO Q4H PRN PRN Reason: GI Upset Stop: 12/19/24 21:29 Bismuth Subsalicylate (Bismuth Subsalicylate 262 Mg Chew) 2 tab PO Q30M PRN PRN Reason: Loose Stool/Diarrhea Stop: 12/19/24 21:29 Clonazepam (Clonazepam 1 Mg Tab) 1 mg PO DAILY PRN PRN Reason: panic attack Stop: 12/21/24 15:13 Last Admin: 11/22/24 10:03 Dose: 1 mg Hydroxyzine HCl (Hydroxyzine Hcl 25 Mg Tab) 50 mg PO HSZ PRN PRN Reason: Insomnia Stop: 12/19/24 21:29 Hydroxyzine HCl (Hydroxyzine Hcl 25 Mg Tab) 25 mg PO Q4H PRN PRN Reason: Anxiety Stop: 12/19/24 21:29 Lamotrigine (Lamotrigine 25 Mg Tab) 25 mg PO HS JULIANNA; Protocol Stop: 12/20/24 21:59 Last Admin: 11/22/24 21:30 Dose: 25 mg Magnesium Hydroxide (Magnesium Hydroxide Susp 30 Ml Udc) 30 ml PO DAILY PRN PRN Reason: Constipation Stop: 12/19/24 21:29 Metformin HCl (Metformin Hcl 500 Mg Tab) 500 mg PO BIDM [facility] Stop: 12/20/24 17:44 Last Admin: 11/22/24 17:22 Dose: 500 mg Miscellaneous (Remove Nicoderm Patch) 1 each N/A DAILY@[id number] [facility] Stop: 12/20/24 08:58 Last Admin: 11/22/24 08:59 Dose: Not Given Naltrexone HCl (Naltrexone Hcl 50 Mg Tab) 25 mg PO BIDM [facility] Stop: 12/20/24 17:44 Last Admin: 11/22/24 17:22 Dose: 50 mg Nicotine (Nicotine 14 Mg/24 Hr Patch) 1 patch TD QAM [facility] Stop: 12/20/24 09:44 Last Admin: 11/22/24 08:59 Dose: 1 patch Nicotine Polacrilex (Nicotine Polacrilex 2 Mg Gum) 2 piece MT PRN PRN PRN Reason: Nicotine Withdrawal Symptoms Stop: 12/19/24 21:29 Last Admin: 11/22/24 18:19 Dose: 2 piece Olanzapine (Olanzapine 5 Mg Tablet) 5 mg PO BID PRN PRN Reason: Agitation Stop: 12/20/24 08:59 Ondansetron HCl (Ondansetron 2 Mg Od Tab) 2 mg PO DAILY PRN PRN Reason: Nausea Stop: 12/21/24 22:10 Last Admin: 11/22/24 09:24 Dose: 2 mg Propranolol HCl (Propranolol Hcl 10 Mg Tab) 10 mg PO BID JULIANNA Stop: 12/22/24 10:44 Last Admin: 11/22/24 21:30 Dose: 10 mg Sodium Chloride (Sodium Chloride 0.65% Na Soln 45 Ml ([place])) 1 - 2 sprays NA PRN PRN PRN Reason: Nasal Dryness/Congestion Stop: 12/19/24 21:29 Trimethoprim/Sulfamethoxazole (Sulfamethoxazole/Trimethoprim Ds 800/160mg Tab) 1 tab PO Q12 JULIANNA Stop: 11/23/24 09:01 Last Admin: 11/22/24 21:29 Dose: 1 tab Mental Health & Subst Abuse Tx Psychiatrist Name of Psychiatrist: Owen Andino Psychiatrist's Date Of Appointment With Psychiatric Provider: 12/04/24 Time of Appointment with Psychiatrist: 11:20AM Psychiatric Appointment Comment: In person - [address] [facility] [id number] Therapist Name of Therapist: Lilo King Therapist's Date of Therapist Appointment: 11/29/24 Time of Therapist Appointment: 11AM Therapy Appointment Comment: Telehealth Driver Name of Driver: [employer] child welfare caseworker Rachell Phone Number for Driver: [phone] Date of Appointment with Driver: 12/06/24 Time of Appointment with Driver: 9AM Case Management Appointment Comment: signals intelligence analysis manager will meet with you at the longterm Post Discharge Appointments Primary Care Physician Name Of Family Doctor/PCP: Dr Yanna Borja Primary Care Diesel Pile Hammer Operator Name of Diesel Pile Hammer Operator: Crisis Peer Support Phone Number of Diesel Pile Hammer Operator: [phone] Diesel Pile Hammer Operator Appointment Comment: Crisis peer support will contact you for scheduling upon discharge Contact Information Discharge Discharge Address: [facility] [address] [place] [address] (9) Urinary tract infection Hematuria presence: without hematuria Urinary tract infection type: site unspecified Qualified Code(s): N39.0 - Urinary tract infection, site not specified
--- NOTE | 2024-11-23 10:21 | Discharge Summary ---
Date of Service November 23, 2024 History of Present Illness She presents for psychiatric admission for worsening depression and SI in the context of multiple psychosocial stressors including including recent homelessness since being released from residential on November 06, lack of financial resources, and perceived absence of positive aspects in life. She describes her mood as "I don't see a way out of this sh*t anymore". She reports her biggest concern is the dissociation because it's "so bad and it hurts to think and talk and express myself". She notes "I feel so empty and hollow and numb like the world around me isn't real". Notes yesterday she almost ran away with someone she just met on the street, "it was like an alter switch" and notes she thought about the consequences of "running from police, I'll get put back in residential". She notes it's really difficult to put words to what she's experiencing. She notes "I need to bring my brain back together". She wonders if she should have by suicide as she feels inpatient has never been helpful in the past and thinks nothing will help unless her dissociation symptoms are fixed. She reports chronic depression and suicidal thoughts, intensified by current circumstances. She describes feeling empty, hollow, and numb, with a profound sense of derealization, questioning her reality and feeling as though she is not real. She experiences significant disorientation and memory issues, including episodes of identity switching that affect her decision-making. She endorses symptoms related to dissociative identity disorder, including episodes of identity switching. She is currently not on any psychiatric medications. Previously, Lamictal 400 mg was prescribed while incarcerated, providing some relief for manic symptoms but minimal impact on depression. She reports she had no script after leaving residential and can't a new one until her appointment at [facility]. She reports Viji was willing to send it in early but "I didn't have a chance to go to [facility] before I came here". She reports recent substance use, including first-time use of MDMA ('Zo') two days prior to presentation, she didn't notice many effects from this but that it made it hard for her to sleep and maybe made her dissociation a little worse. She feels cannabis makes her mental clarity better, denies this contributes to depersonalization nor derealization. She possesses a medical marijuana card and uses cannabis regularly. She denies alcohol use but reports daily cigarette smok ing. Urine drug screen was positive for MDMA, amphetamine, and methamphetamine, though she denies intentional use of methamphetamine or amphetamine, she wonders if her cannabis or Zo may have been contaminated. Psychiatric ROS notable for multiple psychiatric diagnoses, including dissociative identity disorder, borderline personality disorder, bipolar type 1, PTSD, major depression, and anxiety, with episodes typically documented as mixed. She has been on psychiatric medications since age 11, with limited efficacy. Physical Exam Vital Signs (Past 24 Hours) Last Vital Signs Temp 36.7 C 11/23/24 06:37 Pulse 71 11/23/24 06:38 Resp 16 11/23/24 06:37 BP 104/68 11/23/24 06:38 Pulse Ox 96 11/22/24 20:28 O2 Del Method Room Air 11/22/24 20:28 Principal Diagnosis Post Traumatic Stress Disorder with Dissociative Identity Disorder Psychiatric Data See daily stay summary. In short, patient was engaged with the social/therapeutic milieu of the unit, safety was maintained and the patient was cooperative with care. Medication changes included restarting lamictal 25mg HS for mood stabilization and naltrexone 25mg BID for off-label use for dissociation and restarting prior Klonopin 1mg daily prn for panic attacks and they tolerated this well. She declined a support session and safety plan was completed prior to discharge. They participated in safety planning and in discussions about ways to seek support and recognizing warning signs and utilizing coping skills. Reviewed ways to have their safety plan and contacts easily available should thoughts of SI re-emerge in the future. Reviewed importance of seeking emergency care should SI intensify, worsen or should they feel unsafe in the future which they agree to do. On the day of discharge they stated their mood was "I feel better" and "I'm feeling less anxious which is good and more neutral which is a good thing and clarity of mind" and remained future-oriented including meeting with new crisis peer and engaging in aftercare appointments for psychiatry, therapy and case management. Day of Discharge Assessment Today the patient voices readiness for discharge. They note improvement in mood and anxiety. They deny thoughts of harm to self or others. Thoughts are organized and they are clinically improved from admission. There is no evidence of psychosis. They improved in the hospital with support and medication adjustments. They agree to take medications as prescribed and keep follow-up appointments. At the time of the discharge they are deemed to be stable and appropriate for outpatient level of care. They are not deemed to be at imminent risk of harm to self or others. They are aware of emergency and crisis services. Knows to call 911 or go to nearest emergency care center if in a crisis which cannot be handled as an outpatient. Suicide risk assessment: Acute risk is low given improvement in mood and denial of SI, lack of access to lethal means, plan to avoid substance use, improvement in sleep, hopefulness and lessening of dissociation symptoms. Chronic risk is moderate to high given some non-modifiable risk factors: psychiatric co-morbid diagnoses, periods of impulsivity, prior attempt, hx self-harm, emotional reactivity, prior psychiatric hospitalizations, limited social support, mood disorder, cluster B personality disorder, childhood trauma but also with protective factors including sense of responsibility to family and social supports, outpatient care in place, positive coping skills, positive problem solving, willingness to engage with treatment and self-observation. Counseled on ways to reduce acute and chronic risk including engaging with outpatient providers, using safety plan if needed, utilizing supports, taking medication, and using coping skills. Modifiable risk factors of SI, dissociation, PTSD and depression were addressed during hospitalization through development of new coping skills, safety planning, increased outpatient support, and medication adjustments. Discharge physical exam: See admission H&P, MSE per above and day of discharge summary. Overall, I spent a total of 35 minutes on this case including meeting with the patient, reviewing the chart, nursing report, multidisciplinary team meeting, discharge orders, anticipatory planning, safety planning, risk assessment and documentation. Transition of Care Transition Of Care Record: was reviewed with the patient Advance Directives Advance Directives Information Provided: Yes Advance Directives: No Mental Health Advance Directive: No Advance Directives on File: No Living Will: No Power of Digital Media Associate: No Advance Directives Reason:: Declines as Mental Health Visit. Suicide Risk Level Suicide Risk Level Comments: Acute risk is low given denial of SI, see further assessment above Risk Factors Assessment Male: No : Yes Do You Have Access To A Gun?: No Health Problems: No Mental Health Diagnoses: Yes Substance Use Disorders: Yes Previous Attempt: Yes Previous Psychiatric Hospitalization: Yes Hopelessness: No Protective Factors Assessment : No Employed: No Stable Relationships: No Supportive Family: Yes (mother) Good Rapport with Provider: Yes ([facility]) Discharge Data Lab Results 01/20/25 18:40 WBC 9.18 RBC 4.60 Hgb 12.9 Hct 39.4 MCV 85.7 MCH 28.0 MCHC 32.7 RDW Std Deviation 46.2 RDW Coeff of Wood 14.8 H Plt Count 347 MPV 9.3 L Immature Gran % (Auto) 0.7 Neut % (Auto) 67.6 Lymph % (Auto) 21.7 [place] % (Auto) 8.1 Eos % (Auto) 1.1 Baso % (Auto) 0.8 Neut # (Auto) 6.22 Lymph # (Auto) 1.99 [place] # (Auto) 0.74 H Eos # (Auto) 0.10 Baso # (Auto) 0.07 Immature Gran # (Auto) 0.06 Sodium 140 Potassium 4.2 Chloride 102 Carbon Dioxide 32 Anion Gap 6 BUN 16 Creatinine 0.68 Est Cr Clr Drug Dosing 118.7 eGFR 127.79 BUN/Creatinine Ratio 23.5 H Glucose 86 Calcium 10.0 Total Bilirubin 0.3 AST 17 ALT 16 Alkaline Phosphatase 69 Total Protein 7.6 Albumin 4.6 Globulin 3.0 Albumin/Globulin Ratio 1.5 TSH 0.495 HCG, Qual Negative Urine Color Yellow Urine Appearance Cloudy A Urine pH 6.0 Ur Specific [place] 1.027 Urine Protein Negative Urine Glucose (UA) Negative Urine Ketones Negative Urine Blood Negative Urine Nitrite Negative Urine Bilirubin Negative Urine Urobilinogen Negative Ur Leukocyte Esterase 1+ H Urine WBC (Auto) >50 H Urine RBC (Auto) 3-5 H U Hyaline Cast (Auto) 0-2 U Epithel Cells (Auto) 6-10 H Urine Bacteria (Auto) 2+ H Salicylates < 3.0 L Urine Opiates Screen Neg Ur Methadone, Qual Neg Urine Fentanyl Screen Neg Acetaminophen < 3 L Urine Barbiturates Neg Ur Phencyclidine (PCP) Neg U Amphetamin/Meth Scrn Pos H MDMA (Ecstasy) Screen Pos H U Benzodiazepines Scrn Neg Ur Cocaine Metabolite Neg U Marijuana (THC) Screen Pos H Ethyl Alcohol mg/dL < 10.0 SARS-CoV-2, RNA, NAAT NEGATIVE Hospital Course (1) Depression with suicidal ideation: (2) Bipolar disorder: (3) Dissociative identity disorder: (4) Borderline personality disorder: (5) Generalized anxiety disorder with panic attacks: (6) Post traumatic stress disorder (PTSD): (7) Marijuana use: (8) Tobacco use: (9) Urinary tract infection: (10) Psychosocial stressors: Mental Health & Subst Abuse Tx Psychiatrist Name of Psychiatrist: Owen Andino Psychiatrist's Date Of Appointment With Psychiatric Provider: 12/04/24 Time of Appointment with Psychiatrist: 11:20AM Psychiatric Appointment Comment: In person - [address] [facility] [id number] Therapist Name of Therapist: Lilo King Therapist's Date of Therapist Appointment: 11/29/24 Time of Therapist Appointment: 11AM Therapy Appointment Comment: Telehealth Racquet Maker Name of Racquet Maker: Base service unit director of casework Rachell Phone Number for Racquet Maker: [phone] Date of Appointment with Racquet Maker: 12/06/24 Time of Appointment with Racquet Maker: 9AM Case Management Appointment Comment: manager contact will meet with you at the custodial Post Discharge Appointments Primary Care Physician Name Of Family Doctor/PCP: Dr Yanna Borja Primary Care Regional Transfer Liaison Name of Regional Transfer Liaison: Crisis Peer Support Phone Number of Regional Transfer Liaison: [phone] Regional Transfer Liaison Appointment Comment: Crisis peer support will contact you for scheduling upon discharge Contact Information Discharge Discharge Address: Out of the [address] [place] [address] Discharge Plan Discharge Items Patient Disposition: Home - Self-Care Reason For Visit: UNSPECIFIED DEPRESSIVE DISORDER Discharge Diagnosis: Post Traumatic Stress Disorder with Dissociative Identity Disorder Activity: Resume your previous activity Non-emergency contact: Primary Care Provider, Psychiatrist, Therapist and Drift Miner Call non-emergency contact if: you have any medication questions and your symptoms worsen Follow-up/Referrals: Yanna Borja, [Primary Care Provider] - Diet: Regular Addtl Attending Provider Instructions: SPECIAL CARE INSTRUCTIONS: 1. Follow through with your scheduled aftercare appointments. If unable to keep an appointment, please call to reschedule. 2. Take your medication only as prescribed. Medication should not be changed or stopped without the approval of your doctor. In the event of worsening symptoms or concerns about side effects, contact your doctor immediately. 3. Utilize new healthy coping skills, anger management skills, and stress management skills learned during your hospitalization. Journal feelings and process them with a support person. Identify stressors or situations that may result in relapse, deterioration or inappropriate behaviors and develop a p kimani to deal with those issues. 4. If your coping skills are ineffective and you are in crisis, contact your outpatient providers for direction. If unable to reach your providers, please call the [facility] CRISIS LINE AT , go to the [facility] walk-in center at [address] [place] [address] [address], [place], or go to the closest Emergency Room. 5. Avoid alcohol and un-prescribed drugs. 6. You have been provided with the Mental Health Advance Directives Pamphlet for your review. 7. Your condition is stable for discharge to outpatient level of care, but recovery is an ongoing process. Ifthoughts to harm yourself or others return, follow the safety plan developed during your stay. Planning for a safe return home includes securing weapons. Our treatment team recommends weaponsbe removed from the home until your outpatient provider reassesses your progress. In rare cases where the items themselvescannot be removed, guns and ammunitionshould be secured separatelyand keys stored by a reliable personoutside of the home. If you were admitted on an involuntary commitment, the police or other legal authorities may be involved in this process. AFTERCARE APPOINTMENTS: * Please call your insurance company prior to your scheduled appointment to confirm your aftercare providers are covered. Take your insurance information to your appointments. WHO TO CALL AND WHEN: Medical Emergencies: For questions or emergencies related to your hospital stay, please contact the Inpatient Behavioral Health Unit at [phone]. A complaint evaluation supervisor is on-call 23/05 for the Behavioral Health Unit for emergencies At any time you feel your situation is an emergency, you may also call 911 immediately. National Crisis Hotline: 988 Pending Studies at Discharge: No Stand-Alone Forms: My [facility] [employer], Smoking Cessation Medications and DC Order Prescriptions: New metformin 500 mg Tablet 500 mg PO BIDM Qty: 60 0RF naltrexone 50 mg Tablet 25 mg PO BIDM 30 Days Qty: 30 0RF clonazepam 1 mg Tablet 1 mg PO DAILY PRN (Reason: panic attack) 15 Days Qty: 5 0RF lamotrigine [Lamictal] 25 mg Tablet 25 mg PO HS 30 Days Qty: 30 0RF propranolol 10 mg Tablet 10 mg PO BID 30 Days Qty: 60 0RF Discontinued clonazepam 1 mg tablet 2 mg PO DAILY PRN (Reason: Anxiety) Hold Instructions: Until further instructions by your Psychiatrist Rx Instructions: Panic attacks lamotrigine 100 mg tablet 400 mg PO QPM metformin 500 mg tablet 1,000 mg PO 2XD Discharge Orders: Discharge Order (Routine); Ordered 11/23/24 Ordered By: Lavern Escalante Admission Data Admit Date/Time: 11/19/24 21:30 Attending Provider: Lavern Escalante Admit Provider: Lavern Escalante Primary Care Provider: Yanna Borja Other Interventions: Discharge Summary Assessment (RN) Last Done: 11/23/24 10:31 Coding Level of Care Code 79872 D/C day mgmt > 30 min Diagnoses Depression with suicidal ideation F32.A; R45.851 Bipolar disorder F31.9 Dissociative identity disorder F44.81 Borderline personality disorder F60.3 Generalized anxiety disorder with panic attacks F41.1; F41.0 Post traumatic stress disorder (PTSD) F43.10 Marijuana use F12.90 Tobacco use Z72.0 Urinary tract infection N39.0 Hematuria presence: without hematuria Urinary tract infection type: site unspecified Psychosocial stressors Z65.8
[2024-11-23 10:34] VITALS: PULSE 73
[2024-11-25 14:07] LABS: Amphetamine Urine, Confirm 1358 ng/mL (<250); MDA negative; MDEA negative; MDMA (Ecstasy) Urine, Confirm negative; Marijuana Quant, GCMS Urine 3322 ng/mL (<5); Methamphetamine, Ur Confirm 2869 ng/mL (<250)
== END 2024-11-23 11:30 | disposition home or self-care (01) | DRG 882 ==
LOC: ED 18:19 → 3S 21:30

== ENCOUNTER 2025-09-27 16:08 | Inpatient (IN) ==
[2025-09-27] MEDS ORDERED: OXYTOCIN 30 UNITS/NSS 30 UNITS/500 ML BAG IV PRN (17:04)
[2025-09-27] MEDS ORDERED: LACTATED RINGER'S 1,000 ML IV PRN (17:04)
[2025-09-27] MEDS ORDERED: LIDOCAINE 1% LOCAL 20 ML VIAL INFIL PRN (17:04)
--- NOTE | 2025-09-27 17:28 | Obstetrical Progress Note ---
Date of Service September 27, 2025 Assessment & Plan (1) premature rupture of membranes (PPROM) delivered, current hospitalization: Plan: Patient is a 20-year-old G2, P0 at 36+ weeks presents to labor and delivery on mL. Patient presented with complaints of gross rupture of membrane which is confirmed by nurse. Patient did not want to be examined by physician she was done by nurse and found to be 3 cm dilated with grossly rupture of membranes. Bedside ultrasound shows baby is breech. course and records are reviewed. Patient is therefore scheduled to undergo section Consent is obtained. Results & Data Vital Signs (Past 12 Hours) Vital Signs Temp Pulse Resp BP 09/27/25 16:26 36.7 C 79 20 144/87 H 09/27/25 16:16 79 144/87 H
[2025-09-27] MEDS: LACTATED RINGER'S 1,000 ML IV SCH (17:30)
[2025-09-27] MEDS: ACETAMINOPHEN 500 MG TAB ONE (17:32)
[2025-09-27 17:52] LABS: Hematocrit (blood only) 40.1 % (37.0-47.0); Hemoglobin 13.5 g/dL (12.0-16.0); Mean Corpuscular Hemoglobin 29.9 pg (25.0-34.0); Mean Corpuscular Volume 88.9 fL (80.0-100.0); Platelet Count 233 K/uL (130-400); RDW Standard Deviation 41.9 fL (36.4-46.3); Red Blood Count 4.51 M/uL (4.20-5.40); White Blood Count 12.59 K/ul (4.8-10.8)
--- NOTE | 2025-09-27 17:57 | Anesthesiology Consultation ---
Date of Service September 27, 2025 Assessment & Plan Chart Review Chart Review: Acceptable Risk for Surgery and Patient NOT seen in Pre Admission Testing Consults Requested none ASA [id number] Proposed Anesthesia Anesthesia Type: Spinal Risk / Benefits Reviewed With: PT / POA / Parent / Guardian, Accepts Plan and Informed Consent Obtained History Surgery Operation Date: 09/27/25 18:00 Proposed Procedures p Section in LD - Guillermo Orr MD Height/Weight Height: 5 ft 6 in Weight: 92.986 kg Allergies Allergy/AdvReac Type Severity Reaction Status Date / Time mirtazapine [From Remeron] Allergy Intermediate TONGUE Verified 12/01/24 01:58 SWELLED Medications Home Medications Medication Instructions Recorded Confirmed Last Taken vitamins with calcium 1 tab PO QAM 09/24/25 09/27/25 09/26/25 no.72-iron 27 mg-folic acid 1 mg tablet (M-Marisa Plus) ferrous sulfate 27 mg iron tablet 27 mg PO DAILY 09/27/25 09/27/25 09/26/25 Past Medical History Medical History (Updated 09/27/25 @ 17:26 by Guillermo Orr MD) PCOS (polycystic ovarian syndrome) Hyperinsulinemia Bipolar 2 disorder Dissociative identity disorder Depression with suicidal ideation Post traumatic stress disorder (PTSD) Patient declines to discuss. Depression with suicidal ideation Patient denies suicidal thoughts Attention deficit disorder (ADD) Anxiety Depression Exercise / Class Metabolic Activity II 4-5 Yardwork/Stairs/Walk up hill Past Family History Family History (Updated 09/27/25 @ 16:21 by Delmy Meneses RN) Other No known health problems Past Surgical History Surgical History No pertinent past surgical history Past Anesthesia History No Hx of Anesthesia Complications and No Family Hx of Anesthesia Complications History of PONV No Hx of PONV and No Hx of Motion Sickness Social History Smoking Status: Former smoker tobacco type: cigarettes Do You Dip or Chew Tobacco: No Hx Alcohol Use: No Alcohol type: hard liquor alcohol intake frequency: a few times a month Hx Substance Use: Yes substance use type: marijuana Last Used Substance: Days (ago) Last Used Substance Other:: 09/26/2025 Physical Exam Vital Signs Last Vital Signs Temp 36.7 C 09/27/25 16:26 Pulse 79 11/28/25 16:26 Resp 20 09/27/25 16:26 BP 144/87 H 09/27/25 16:26 ENMT Mouth: no dentition abnormality Thyromental Distance: > or= 3.5 Finger Breadths Mallampati Class: II Neck normal visual inspection Respiratory normal respiratory effort Auscultation: lungs clear to auscultation bilaterally Cardiovascular Rate/Rhythm: regular rate and regular rhythm Psychiatric Orientation: alert Testing Laboratory Results 09/27/25 17:39
[2025-09-27] MEDS: PENICILLIN GK 6 MU in DEXTROSE 5% 250 ML IV STA (18:10)
[2025-09-27] MEDS: ACETAMINOPHEN 500 MG TAB PO SCH (18:10)
[2025-09-27 18:11] LABS: Alanine Aminotransferase 17.0 U/L (7-52); Albumin Globulin Ratio 0.9 (0.9-2); Albumin Level 3.1 gm/dl (3.4-5.0); Alkaline Phosphatase 83.0 U/L (34-104); Anion Gap 7.0 (3-11); Bilirubin,Total 0.2 mg/dl (0.2-1.0); Blood Urea Nitrogen 10.0 mg/dl (6-23); Calcium 8.8 mg/dl (8.6-10.3); Carbon Dioxide 24.0 mmol/L (21-32); Chloride 105.0 mmol/L (98-107); Creatinine Clr Calc Pharmacy 217.5 ml/min; Globulin 3.4 gm/dl (2.5-4.0); Glucose 80.0 mg/dl (70-99(Fasting)); Potassium 3.9 mmol/L (3.5-5.1); Sodium 136.0 mmol/L (136-145); Total Protein 6.5 gm/dl (6.0-8.3)
[2025-09-27] MEDS: TERBUTALINE SULFATE 1 MG/ML VIAL SQ ONE (18:11)
[2025-09-27] MEDS: CITRIC ACID/SODIUM CITRATE 15 ML UDC PO SCH (18:13)
[2025-09-27] MEDS: CITRIC ACID/SODIUM CITRATE 15 ML UDC ONE (18:18)
[2025-09-27] MEDS: TERBUTALINE SULFATE 1 MG/ML VIAL ONE (18:19)
[2025-09-27] MEDS ORDERED: LACTATED RINGER'S 1,000 ML IV SCH ×2 (18:30→21:45)
[2025-09-27] MEDS ORDERED: ONDANSETRON INJ 2 MG/ML 2 ML VIAL ONE (18:48)
[2025-09-27] MEDS ORDERED: PHENYLEPHRINE HCL 10 MG/ML VIAL ONE (18:48)
[2025-09-27 19:19] LABS: Amphetamines+Metham, Urine Neg (Neg); MDMA (Ecstacy), Urine Neg (Neg); Marijuana, Urine Pos (Neg)
[2025-09-27] MEDS ORDERED: OXYTOCIN 10 UNITS/ML VIAL ONE (19:35)
[2025-09-27] MEDS ORDERED: MoRPHine SULFATE PF 1 MG/ML 10 ML AMP/VIAL ONE (19:35)
[2025-09-27] MEDS ORDERED: PENICILLIN GK 3 MU in DEXTROSE 5% 100 ML IV PRN (20:04)
[2025-09-27 20:41] LABS: Base Excess Cord Arterial Bld 0.4 mEq/L (-9-1.8); Base Excess Cord Venous Blood 2.0 mEq/L (-7.7-1.9); CO2 Cord Arterial Blood 55 mmHg (39.1-73.5); Cord Venous Blood PO2 31 mmHg (14.1-43.3); HCO3 Cord Arterial Blood 28 mmol/L (19.7-28.5); O2 Saturation Cord Venous Bld < 60.0 % (<68); Oxygen Sat Cord Arterial Blood < 60.0 % (<60); PO2 Cord Arterial Blood < 20 mmHg (4.1-31.7); pH Cord Arterial Blood 7.31 (7.1-7.38)
[2025-09-27] MEDS ORDERED: METOCLOPRAMIDE HCL INJ 5 MG/ML 2 ML VIAL ONE (20:46)
--- NOTE | 2025-09-27 21:29 | Anesthesiology Progress Note ---
Date of Service September 27, 2025 Anesthesia Post Procedure Vital Signs Vital Signs: Temp Pulse Resp BP 09/27/25 18:25 36.7 C 79 20 144/87 H 09/27/25 16:26 36.7 C 79 20 144/87 H 09/27/25 16:16 79 144/87 H Transfer of Care Handoff Completed per policy Notes Mental Status: alert / awake / arousable Nausea / Vomiting: adequately controlled Pain: adequately controlled Airway Patency, RR, SpO2: stable & adequate BP & HR: stable & adequate Hydration State: stable & adequate Neuraxial Anesthesia: was administered and sensory block is resolving Anesthetic Complications: no major complications apparent and Pt Satisfied with anesthetic care
[2025-09-27] MEDS ORDERED: PROMETHAZINE 12.5 MG/50.5 ML BAG IV PRN (21:31)
[2025-09-27] MEDS ORDERED: MAGNESIUM HYDROXIDE SUSP 30 ML UDC PO PRN (21:31)
[2025-09-27] MEDS ORDERED: BENZOCAINE 20% SPRY 85 APPLN/85 GM CAN EXT PRN (21:31)
[2025-09-27] MEDS ORDERED: diphenhydrAMINE Capsule 25 MG CAP PO PRN (21:31)
[2025-09-27] MEDS ORDERED: diphenhydrAMINE 50 MG/ML VIAL IV PRN (21:31)
[2025-09-27] MEDS ORDERED: HYDROCORTISONE ACETATE 25 MG SUPP PR PRN (21:31)
[2025-09-27] MEDS ORDERED: ONDANSETRON INJ 2 MG/ML 2 ML VIAL IV PRN (21:31)
[2025-09-27] MEDS ORDERED: CALCIUM CARBONATE 500 MG CHEWABLE TAB PO PRN (21:31)
--- NOTE | 2025-09-27 21:42 | Operative Report ---
Post Operative Report Pre & Post Diagnosis Operation Date: 09/27/25 18:00 Pre-Op Diagnosis: Primary C- section for Breech Post-Op Diagnosis: same I identified the patient and participated in the time-out.: Yes Procedure Operation Date: 09/27/25 18:00 Actual Procedures p Section in LD for [facility] at 2017(Bilateral) - Guillermo Orr MD Surgeon Guillermo Orr MD Turnaround Planner Aliya Rodriguez RN Estimated Blood Loss 500 Findings Consistent with Post-Op Diagnosis Uterus appeared grossly normal on both fallopian tubes and ovaries identified. No adhesions in the abdomen or pelvic seen. infant in funmi breech presentation. Fluids IVF; 1500ml Urine ; 500ml EBL; 500ml Specimens Placenta cord bloos and cord gasses Drains clancy cath Anesthesia Type Spinal Complications none Indications 1 premature rupture of membranes 2. Funmi breech presentation. Description of Procedure Patient brought to the operating room Prepped and draped in normal sterile fashion in dorsal supine position with a leftward tilt. Time out is performed. Patient is identified by name and date of . Allergy and antibiotics and reviewed and confirmed. Skin check is performed to see if anesthesia is adequate A Pfannenstiel incision is made and carried out to the fascia with a scalpel. Fascia is incised in the midline extended laterally on both sides with Bruce scissors. Mark's were used to grab the superior part of the fascial incision and the rectus abdominis muscle dissected with Bruce scissors.. Same procedure was performed on the lower section of the fascia. The rectus muscle is then in the midline and the peritoneum identified, tented up and entered sharply with the Metzenbaum scissors. The peritoneal incision was then extended superiorly and inferiorly with good visualization of the bladder. An Vern retractor was then inserted to provide better visualization and retraction. Vesicouterine peritoneum was identified, grasped with pickups and entered sharply with Metzenbaum scissors. The incision was then extended laterally and the bladder flap created with Metzenbaum scissors. The lower uterine segment incision was performed in a transverse fashion with a scalpel. Uterine incision was then extended laterally with the bandage scissors. Pt was prematurely raptured with clear amniotic fluid Infant was in funmi breech position. Patient maneuvers were used to deliver infant without difficulty. There was nuchal cord. Nose and mouth suctioned with the bulb suction. Delayed cord clamping performed and cord is then clamped and cut and infant is handed over to the waiting pediatric team. Cord blood and gases obtained The placenta is then removed manually the uterus is exteriorized and cleared of all clots and debris. Uterine incision it repaired with 0-Vicryl in a locking fashion. A second layer of 0-Vicryl is used to obtain excellent hemostasis. Uterus is placed back into the abdominal cavity.. The bladder flap was repaired in a running fashion with plain suture. Copious amount of irrigation was used to irrigate the abdomen. Gutters were cleared of all clots and debris . Hemostasis was obtained. The Vern retractor is removed as well as sponges or instruments in the abdomen. The peritoneum was identified and closed in a running fashion using plain suture. The rectus abdominis muscle was examined to ensure there no bleeding. The rectus abdominis muscle was approximated loosely using plain suture in a [id number] manner. Once again hemostasis is confirmed. The fascia was grasped with Nikos's and closed in a running fashion. Both fascial layers are closed together using 0-Vicryl suture. Subcutaneous space is irrigated and hemostasis was confirmed. Subcutaneous space is approximated with plain suture. Skin is closed with shannon. The patient tolerated procedure well sponge just labs needle counts were correct x2 patient is sent to recovery in stable condition I attest to the content of the Intraoperative Record and any orders documented therein. Any exceptions are noted below.
[2025-09-27] MEDS: OXYTOCIN 20 UNITS/LR 1,002 ML IV SCH (23:05)
[2025-09-27] MEDS: OXYTOCIN 20 UNITS/1002ML LR IV ONE (23:17)
[2025-09-27] MEDS: KETOROLAC 30 MG/ML VIAL IV SCH (23:26)
[2025-09-27] MEDS: OXYTOCIN 10 UNITS/ML VIAL ONE (23:30)
[2025-09-28] MEDS ORDERED: diphenhydrAMINE 50 MG/ML VIAL IV PRN (00:06)
[2025-09-28] MEDS ORDERED: MoRPHine SULFATE PF 1 MG/ML 10 ML AMP/VIAL INT SPINAL ONE (00:06)
[2025-09-28] MEDS ORDERED: MEPERIDINE HCL 25 MG/ML CARP/VIAL IV PRN (00:06)
[2025-09-28] MEDS ORDERED: ONDANSETRON INJ 2 MG/ML 2 ML VIAL IV PRN (00:06)
[2025-09-28] MEDS ORDERED: HYDROmorphone INJ 0.5 MG/0.5 ML SYR IV PRN ×2 (00:06→13:36)
[2025-09-28] MEDS ORDERED: NALOXONE HCL 0.4 MG/1 ML VIAL/CARP IV PRN (00:06)
[2025-09-28] MEDS ORDERED: NALBUPHINE HCL INJ 10 MG/ML AMP IV PRN (00:06)
[2025-09-28] MEDS ORDERED: PROMETHAZINE 6.25 MG/50.25 ML BAG IV PRN (00:06)
[2025-09-28] MEDS ORDERED: NALOXONE HCL 0.08 MG in SYRINGE 1.8 ML IV PRN (00:06)
[2025-09-28] MEDS ORDERED: MoRPHine SULFATE 2 MG/ML CARP IV PRN (00:06)
[2025-09-28] MEDS ORDERED: LACTATED RINGER'S 500 ML IV PRN (00:06)
[2025-09-28] MEDS ORDERED: NALOXONE HCL 1 MG in SODIUM CHLORIDE 0.9% 1,000 ML IV PRN (00:06)
[2025-09-28] MEDS ORDERED: SODIUM CHLORIDE 0.9% 1,000 ML IV SCH (00:15)
[2025-09-28] MEDS ORDERED: DC INTRASPINAL MORPHINE SCH (00:15)
[2025-09-28] MEDS ORDERED: NO NARCOTICS OR SEDATIVES SCH (00:15)
[2025-09-28] MEDS: SIMETHICONE 80 MG CHEW PO SCH (03:43)
[2025-09-28] MEDS: ACETAMINOPHEN 325 MG TAB PO SCH (03:44)
[2025-09-28 06:57] LABS: Hematocrit (blood only) 28.7 % (37.0-47.0); Hemoglobin 9.8 g/dL (12.0-16.0); Immature Granulocytes # (auto) 0.18 K/uL (0.01-0.20); Immature Granulocytes % (auto) 1.4 %; Mean Corpuscular Hemoglobin 30.2 pg (25.0-34.0); Mean Corpuscular Volume 88.6 fL (80.0-100.0); Platelet Count 175 K/uL (130-400); RDW Standard Deviation 41.9 fL (36.4-46.3); Red Blood Count 3.24 M/uL (4.20-5.40); White Blood Count 13.24 K/ul (4.8-10.8)
[2025-09-28] MEDS ORDERED: PRENATAL VITAMIN 1 TAB PO SCH (08:00)
[2025-09-28] MEDS: DOCUSATE SODIUM 100 MG CAP PO SCH (08:05)
[2025-09-28] MEDS: PRENATAL VITAMIN 1 TAB PO SCH (08:05)
[2025-09-28] MEDS: FERROUS SULFATE 325 MG TAB PO SCH (08:05)
--- NOTE | 2025-09-28 10:00 | Obstetrical Progress Note ---
Date of Service September 28, 2025 Assessment & Plan Admission and Anticipated Discharge Date Admission Date: September 27, 2025 Subjective abdomen soft and non tender bandage removed incision is clean and dry bowel sounds hypoactive no calf tenderness vaginal bleeding scant hgb 9.8 patient COVID positive Results & Data Vital Signs (Past 12 Hours) Vital Signs Temp Pulse Pulse Resp BP Pulse Ox Pulse Ox 09/28/25 06:00 18 97 09/28/25 05:05 18 98 09/28/25 03:50 16 98 09/28/25 03:25 98 09/28/25 03:25 36.8 C 88 16 114/61 98 09/28/25 02:49 16 97 09/28/25 01:55 18 96 09/28/25 00:42 16 99 09/27/25 23:45 18 100 09/27/25 23:45 37.0 C 84 18 141/71 H 100 09/27/25 23:35 100 09/27/25 23:20 36.7 C 85 18 141/71 H 100 09/27/25 22:50 36.7 C 87 18 126/71 100 09/27/25 22:20 36.7 C 90 18 128/80 98 09/27/25 22:10 88 16 138/85 98 09/27/25 22:00 36.6 C 90 16 150/99 H 98 O2 Del Method O2 Del Method 09/28/25 06:00 09/28/25 05:05 09/28/25 03:50 09/28/25 03:25 Room Air 09/28/25 03:25 Room Air 09/28/25 02:49 09/28/25 01:55 09/28/25 00:42 09/27/25 23:45 09/27/25 23:45 Room Air 09/27/25 23:35 Room Air 09/27/25 23:20 Room Air 09/27/25 22:50 Room Air 09/27/25 22:20 Room Air 09/27/25 22:10 Room Air 09/27/25 22:00 Room Air
[2025-09-28] MEDS: SENNA 8.6 MG TAB PO PRN (18:45)
[2025-09-28] MEDS: IBUPROFEN 600 MG TAB PO SCH (21:50)
[2025-09-28] MEDS ORDERED: KETOROLAC 30 MG/ML VIAL IV PRN (22:00)
[2025-09-29 07:13] LABS: Hematocrit (blood only) 27.8 % (37.0-47.0); Hemoglobin 9.4 g/dL (12.0-16.0)
--- NOTE | 2025-09-29 10:25 | Obstetrical Progress Note ---
Date of Service September 29, 2025 Assessment & Plan Admission and Anticipated Discharge Date Admission Date: September 27, 2025 Subjective abdomen soft and non tender bowel sounds normal incision is clean and dry no calf tenderness ambulating well vaginal bleeding scant hgb 9.4 Results & Data Vital Signs (Past 12 Hours) Vital Signs Temp Pulse Pulse Resp BP Pulse Ox O2 Del Method 09/29/25 07:56 36.9 C 86 22 140/82 09/28/25 23:00 36.9 C 93 H 18 123/65 99 Room Air
[2025-09-29] MEDS: DIPHTHER/TETAN/PERTUS Vaccine (Tdap, Adol/Adult) 0.5mL IM ONE (18:03)
[2025-09-30 00:42] VITALS: RESP 18; O2SAT 99
[2025-09-30] MEDS: IBUPROFEN 600 MG TAB PO PRN (04:55)
[2025-09-30 08:16] VITALS: BP 139/77; TEMP 98.8
[2025-09-30] MEDS: ACETAMINOPHEN 325 MG TAB PO PRN (08:26)
--- NOTE | 2025-09-30 10:18 | Obstetrical Progress Note ---
Date of Service September 30, 2025 Assessment & Plan (1) delivery delivered: Pt is s/p section day #2 Pt doing well No complaints Pain adequately controlled with medications Stable vital Stable H/H: 9.4/27.0 Tolerating PO food and Meds Ambulating w/o difficulty + BS, No BM Incision: Clean , dry and Intact Pt has pediatric social worker consult Peds wish to continue monitoring baby Subjective Ambulation: ambulating normally Voiding: no voiding problems Passing Gas:: Yes Diet Tolerance:: clear liquids Lochia:: Small Feeding Type:: breast feeding Review of Systems All systems reviewed & are unremarkable except as noted in HPI & below Physical Exam Constitutional WD/WN, vitals as above well developed and well nourished Eyes PERRL, conjunctivae normal, anicteric sclerae ENMT external ear and nose normal, oropharynx normal Neck trachea midline, no thyromegaly Respiratory normal respiratory effort, lungs clear to auscultation Cardiovascular RRR, no murmur, no edema Chest (Breasts) normal inspection/palpation of breasts Gastrointestinal (Abdomen) normal bowel sounds, soft, nontender, no hepatosplenomegaly Musculoskeletal no cyanosis or clubbing, extremities motor strength 5/5 Skin no rashes, warm and dry + incision (Clean,dry and intact) Neurologic patellar DTR's 2+ bilat, sensation intact Psychiatric A+Ox3, euthymic affect Genitourinary normal external appearance Lymphatic no cervical or axillary lymphadenopathy Results & Data Vital Signs (Past 12 Hours) Vital Signs Temp Pulse Pulse Resp BP Pulse Ox O2 Del Method 09/30/25 08:05 37.1 C 89 18 139/77 99 Room Air 09/30/25 00:00 36.7 C 99 H 18 145/80 H 99 Room Air
[2025-09-30 13:09] VITALS: PULSE 99
--- NOTE | 2025-09-30 13:13 | Discharge Summary ---
Date of Service September 30, 2025 Admission HPI Per Admitting Provider This is a 20-year-old G1, P0 expected due date 10/25/2025. Patient presented to labor and delivery on 09/27/2025. She was 36 weeks and 3 days on that day. She had experienced premature rupture of membranes. Amniotic fluid was clear. She was examined on labor and delivery and infant found to be in funmi breech presentation. Patient underwent section on that same day at 2017 hrs. Details of surgery is in the surgical note. Surgery was otherwise unremarkable. Admission workup showed patient was COVID positive. Postop day 1 and 2 patient has done remarkably well she is able to ambulate tolerate p.o. food and medication and is in stable condition with stable vitals. Patient's was complicated with history of marijuana use and other social problems including history of attempted suicides. She has been seen by social studies department chair and is being discharged him home today in stable condition Discharge Data Procedures Performed Operation Date: 09/27/25 18:00 Actual Procedures p Section in LD for [facility] at 2017(Bilateral) - Guillermo Orr MD Hospital Course (1) delivery delivered: Plan Status post section Discharged home in stable condition Post op course was unremarkable and pt is discharges home in stable condition. Discharge instructions including medications,diet, activity and follow up appointments are reviewed with pt. Discharge Instructions Post op course was unremarkable and pt is discharges home in stable condition. Discharge instructions including medications,diet, activity and follow up appointments are reviewed with pt.
--- NOTE | 2025-10-01 09:15 | Coding Query ---
CODING QUERY To promote full compliance with coding requirements relating to patient care, provider participation is requested in all cases of supervisor harvesting uncertainty. Please assist us with the question(s) below: Coding Question(s): There is documentation in the record on the addendum on the 09/30 Progress Note of, "Pt is +ve COVID- asymptomatic", and documentation on the Discharge Summary of, "Admission workup showed patient was COVID positive" . Please specify below, regarding COVID positive documentation: ( ) /Childbirth Complicated by Asymptomatic COVID Infection. Please specify further, regarding COVID Infection below: ( ) COVID Infection of specified type. Please Specify ( ) Unspecified COVID Infection (x ) /Childbirth Complicated by COVID positive,result, Not a COVID Infection ( ) Other: Please Specify Physician's Response(s): Thank you Mehreen Fernandez Principal Diagnosis: "that condition established after study, to be chiefly responsible for occasioning the admission of the patient to the hospital for care." Co-Existing Principal Diagnosis: "when two or more diagnoses equally meet the criteria for principal diagnosis as determined by the circumstances of admission, diagnostic work up, and/or therapy provided, and the Alphabetic Index, Tabular List, or another coding guideline does not provide sequencing direction, any one of the diagnoses may be sequenced first." "When the physician has documented what appears to be a current diagnosis in the body of the record, but has not included the diagnosis in the final diagnostic statement, the physician should be asked whether the diagnosis should be added." (Source [facility]oding [facility] 2 QTR90. p3-4) [email or web address]
[2025-10-03 16:47] LABS: Marijuana Quant, GCMS Urine 36 ng/mL (<5)
== END 2025-09-30 14:55 | disposition home or self-care (01) | DRG 787 ==
LOC: OPB 16:08 → 4S1 16:10 → 4E1 23:07